=== PATIENT | male | born 1995 | race Two or more races ===

== ENCOUNTER 2024-02-07 07:50 | Observation (INO) ==
--- NOTE | 2024-02-07 08:15 | Emergency Department Note ---
Impression & Plan Foreign body ingestion ADMIT ED Provider Note HPI: History obtained from patient. The patient is a 28-year-old biological male who presents the emergency department from [facility] over concern for foreign body. Patient states last night at approximately midnight he ate an amount of glass from a broken tablet in an attempt to kill himself. Patient states that around the same time he also put pieces of a plastic fork in his urethra. Patient states that he developed worsening abdominal pain overnight and therefore came to the emergency department today to be assessed. On arrival here to the ED the patient is alert, patient is hemodynamically stable and otherwise appears to be in no acute distress on my initial assessment. ROS: - Per HPI Differential Diagnosis: Ingested foreign body/glass, perforated viscus, esophageal perforation, injury to the urethra, amongst other potential pathologies. *Outpatient medications and allergy history reviewed. PE: General: Alert HEENT: Normocephalic, trachea midline Eyes: Extraocular eye movement is intact, no scleral erythema Pulmonary: Clear to auscultation bilaterally, no wheezing Cardio: Regular rate and rhythm GI: Abdomen is soft to palpation, there is mild tenderness diffusely to palpation without any guarding or rigidity : No suprapubic tenderness, external exam does not show any evidence of any penile abnormalities or blood at the urethral meatus, no visualized foreign body MSK: No evidence of trauma or malformation of the extremities, no edema Skin: No evidence of rash Neuro: Alert, no focal deficits Psychiatric: Cooperative INDEPENDENT INTERPRETATIONS: school bus monitor: (As interpreted by myself): - An order was placed for continuous cardiac monitoring - Patient was noted to be in sinus rhythm with a rate of 70 Interventions provided in ED: -IV morphine, IV Zofran Medical Decision Making: IV was established and lab work obtained, patient was placed on laboratory monitor. Lab work shows a mild leukocytosis of 14.11, hemoglobin is stable at 11.2, platelet count is normal at 314, CMP does not show any evidence of any critical findings, urinalysis shows 1+ leukocyte esterase without any significant hematuria. X-ray imaging of the abdomen was obtained that is concerning for possible ingested glass in the area of the hepatic flexure. I did discuss this finding with on-call gastroenterology, Dr. Rodriguez, who is in agreement for consultation. He recommended admission for observation in the event that the glass was past the stomach so the patient can be monitored while this passes through the GI system. CT imaging of the abdomen pelvis was subsequently ordered by the gastroenterology service. Patient remained otherwise stable. In regards to the foreign body of the urethra I did consult urology, case was discussed with the on-call urology midlevel provider. They did evaluate the patient. Will defer further management of urethral foreign body to the urology service following further workup for ingested glass by gastroenterology. Following the uploading of the CT images of the abdomen pelvis, I did receive [place] text communication from the gastroenterology midlevel provider, Regis Mares PA-C, stating that the urology service would be taking the patient for EGD for further evaluation after they reviewed CT imaging. Formal read by the radiology service of CT imaging of the abdomen pelvis is currently pending. I did then discussed the case with the on-call hospitalist, Dr. Cantu, and the patient was placed for admission in stable condition. Patient was transported to the endoscopy suite in stable condition for further management. Consultants/Discussions held with other healthcare providers: -Gastroenterology, Dr. Rodriguez -Urology, Dr. Helms -Hospitalist, Dr. Cantu Disposition discussion held by myself with: -Patient and [facility] staff at the bedside Diagnosis: 1. Reported ingestion of glass, acute 2. Placement of urethral foreign body/plastic, acute 3. Suicide attempt, acute 4. Abdominal pain, acute Disposition: Admission José Antonio Beck DO Emergency Medicine Past Med/Surg History Problem List Foreign body ingestion (Acute) Foreign body ingestion Foreign body in penis (Acute) Malingering Acute urinary retention Medical History Asthma Foreign body in urethra Social History Smoking Status: Never smoker Tobacco Type: E-cigarettes / Vaping Preferred Language: [place] Feels Safe at Home: Yes Allergies Allergies Allergy/AdvReac Type Severity Reaction Status Date / Time trazodone Allergy Unknown Swelling Verified 02/07/24 14:27 of Lip/Tongue/Throat Home Meds Home Medications Medication Instructions Recorded Confirmed albuterol sulfate 90 mcg/actuation 2 puff inhalation QID PRN 11/21/23 02/07/24 aerosol inhaler Shortness Of Breath Or Wheezing spironolactone 100 mg tablet 100 mg PO UD 11/21/23 02/07/24 jstxftr-cwfwvnrghtcfo-cckvoril 250 2 tab PO BID PRN Pain 02/07/24 02/07/24 mg-250 mg-65 mg tablet ciclesonide 80 mcg/actuation 1 puff inhalation BID 02/07/24 02/07/24 aerosol inhaler (Alvesco) coal tar 2 % shampoo (Tarsum 1 applic topical 02/07/24 02/07/24 Professional) estradiol valerate 20 mg/mL 20 mg IM UD 02/07/24 02/07/24 intramuscular oil mirtazapine 15 mg tablet 22.5 mg PO HS 02/07/24 02/07/24 omeprazole 40 mg capsule,delayed 40 mg PO DAILY 02/07/24 02/07/24 release perphenazine 16 mg tablet 16 mg PO HS 02/07/24 02/07/24 sertraline 25 mg tablet 75 mg PO DAILY 02/07/24 02/07/24 sucralfate 1 gram tablet 1 g PO BID 02/07/24 02/07/24 topiramate 25 mg tablet 75 mg PO HS 02/07/24 02/07/24 Results & Data (ED) Vital Signs Vital Signs - 24 hr 02/07/24 07:56 02/07/24 08:23 02/07/24 08:29 Temperature 36.7 C Temperature Source Temporal Artery Scan Pulse Rate 73 70 69 Pulse Rate [Apical] Pulse Rhythm Regular Pulse Rhythm [Apical] Respiratory Rate 18 14 Respiratory Effort / Characteristics Non-Labored Spontaneous Respiratory Depth Normal Respiratory Pattern Blood Pressure 120/75 Blood Pressure [Right Arm] Blood Pressure Mean 90 Blood Pressure Mean [Right Arm] Blood Pressure Position Sitting Blood Pressure Position [Right Arm] Pulse Oximetry 100 100 Oxygen Delivery Method Room Air Room Air Sepsis Recent Fever Within 48 Hours No Sepsis New/Unexplained Change in Mental Status No Sepsis Action Taken by Nursing No Action Required 02/07/24 08:30 02/07/24 09:00 02/07/24 09:30 Temperature Temperature Source Pulse Rate 77 64 64 Pulse Rate [Apical] Pulse Rhythm Pulse Rhythm [Apical] Respiratory Rate 12 19 17 Respiratory Effort / Characteristics Respiratory Depth Respiratory Pattern Blood Pressure 122/71 123/72 114/73 Blood Pressure [Right Arm] Blood Pressure Mean 77 87 90 Blood Pressure Mean [Right Arm] Blood Pressure Position Blood Pressure Position [Right Arm] Pulse Oximetry 100 8 L 96 Oxygen Delivery Method Sepsis Recent Fever Within 48 Hours Sepsis New/Unexplained Change in Mental Status Sepsis Action Taken by Nursing 02/07/24 10:00 02/07/24 11:00 02/07/24 11:30 Temperature Temperature Source Pulse Rate 76 88 66 Pulse Rate [Apical] Pulse Rhythm Pulse Rhythm [Apical] Respiratory Rate 16 19 20 Respiratory Effort / Characteristics Respiratory Depth Respiratory Pattern Blood Pressure 124/74 93/63 L 107/53 L Blood Pressure [Right Arm] Blood Pressure Mean 103 75 76 Blood Pressure Mean [Right Arm] Blood Pressure Position Blood Pressure Position [Right Arm] Pulse Oximetry 98 100 100 Oxygen Delivery Method Sepsis Recent Fever Within 48 Hours Sepsis New/Unexplained Change in Mental Status Sepsis Action Taken by Nursing 02/07/24 12:30 02/07/24 14:31 Temperature 37 C Temperature Source Oral Pulse Rate 64 Pulse Rate [Apical] 64 Pulse Rhythm Pulse Rhythm [Apical] Regular Respiratory Rate 18 20 Respiratory Effort / Characteristics Non-Labored Spontaneous Normal for Patient Respiratory Depth Normal Respiratory Pattern Regular Blood Pressure 112/64 Blood Pressure [Right Arm] 110/74 Blood Pressure Mean 74 Blood Pressure Mean [Right Arm] 86 Blood Pressure Position Blood Pressure Position [Right Arm] Semi-fowlers Pulse Oximetry 99 99 Oxygen Delivery Method Room Air Sepsis Recent Fever Within 48 Hours Sepsis New/Unexplained Change in Mental Status Sepsis Action Taken by Nursing Laboratory Data 02/07/24 08:21 02/07/24 08:21 Lab Results 02/07/24 02/07/24 Range/Units 08:21 08:35 WBC 14.11 H (4.8-10.8) K/ul RBC 3.95 L (4.70-6.10) M/uL Hgb 11.2 L (14.0-18.0) g/dl Hct 33.5 L (42.0-52.0) % MCV 84.8 (80.0-100.0) fL MCH 28.4 (25.0-34.0) pg MCHC 33.4 (32.0-36.0) g/dL RDW Std Deviation 40.3 (36.4-46.3) fL RDW Coeff of Pankaj 13.0 (11.5-14.5) % Plt Count 314 (130-400) K/uL MPV 9.6 (9.4-12.4) fL Immature Gran % (Auto) 0.3 % Neut % (Auto) 79.2 % Lymph % (Auto) 11.1 % [place] % (Auto) 8.6 % Eos % (Auto) 0.4 % Baso % (Auto) 0.4 % Neut # (Auto) 11.18 H (1.40-6.50) K/uL Lymph # (Auto) 1.56 (1.20-3.40) K/uL [place] # (Auto) 1.22 H (0.11-0.59) K/uL Eos # (Auto) 0.06 (0.00-0.50) K/uL Baso # (Auto) 0.05 (0.00-0.20) K/uL Immature Gran # (Auto) 0.04 (0.01-0.20) K/uL Sodium 137 (136-145) mmol/L Potassium 3.5 (3.5-5.1) mmol/L Chloride 107 (98-107) mmol/L Carbon Dioxide 24 (21-32) mmol/L Anion Gap 6 (3-11) BUN 11 (6-23) mg/dl Creatinine 0.83 (0.6-1.4) mg/dl Est Cr Clr Drug Dosing 125.0 ml/min Est GFR ( Amer) 139.8 ml/min Est GFR (Non-Af Amer) 120.6 ml/min BUN/Creatinine Ratio 13.3 (10-20) Glucose 96 (70-99(Fasting)) mg/dl Calcium 9.6 (8.6-10.3) mg/dl Total Bilirubin 0.3 (0.2-1.0) mg/dl AST 21 (13-39) U/L ALT 12 (7-52) U/L Alkaline Phosphatase 60 (34-104) U/L Total Protein 7.7 (6.0-8.3) gm/dl Albumin 4.8 (3.4-5.0) gm/dl Globulin 2.9 (2.5-4.0) gm/dl Albumin/Globulin Ratio 1.7 (0.9-2) Lipase 26 (11-82) U/L Urine Color Yellow Urine Appearance Clear (Clear) Urine pH 7.0 (4.5-7.5) Ur Specific [place] 1.010 (1.000-1.030) Urine Protein Negative (Negative) Urine Glucose (UA) Negative (Negative) Urine Ketones Negative (Negative) Urine Blood Negative (Negative) Urine Nitrite Negative (Negative) Urine Bilirubin Negative (Negative) Urine Urobilinogen Negative (Negative) Ur Leukocyte Esterase 1+ H (Negative) Urine WBC (Auto) 0-5 (0-5) /hpf Urine RBC (Auto) 0-2 (0-2) /hpf U Hyaline Cast (Auto) 0-2 (0-2) /lpf U Epithel Cells (Auto) 0-2 (0-2) /hpf Urine Bacteria (Auto) None Seen (None Seen) Administered Medications Pantoprazole Sodium 40 mg/ (Syringe) 10 mls @ 5 mls/min IV BID AZUL Stop: 03/08/24 10:14 Last Admin: 02/07/24 10:34 Dose: 5 mls/min Documented By: HELGA Discontinued Medications Ioversol (Optiray 320 100ml) 92 ml IV ONCE ONE Stop: 02/07/24 12:44 Last Admin: 02/07/24 12:44 Dose: 92 ml Documented By: LORETTA Morphine Sulfate (Morphine Sulfate 4 Mg/Ml 1 Ml Carp\Vial) 4 mg IV NOW STA Stop: 02/07/24 09:09 Last Admin: 02/07/24 09:48 Dose: 4 mg Documented By: HELGA Morphine Sulfate (Morphine Sulfate 2 Mg/Ml Carp) 2 mg IV NOW STA Stop: 02/07/24 11:18 Last Admin: 02/07/24 11:31 Dose: 2 mg Documented By: HELGA Ondansetron HCl (Ondansetron Inj 2 Mg/Ml 2 Ml Vial) 4 mg IV NOW STA Stop: 02/07/24 09:09 Last Admin: 02/07/24 09:48 Dose: 4 mg Documented By: HELGA Imaging Data Radiologist's Impression: KUB X-Ray 02/07/24 08:09 XR KUB/Abdomen 1 view CLINICAL HISTORY: swallowed glass, also rectal FB reported TECHNIQUE: 1 view of the abdomen was obtained. Comparison: Comparison is made to abdomen radiograph 11/21/2023 FINDINGS: There are angular densities in the hepatic flexure. The osseous structures are grossly unremarkable. The bowel gas pattern is nonobstructive. A moderate amount of stool is noted within the large bowel. IMPRESSION: Angular densities in the hepatic flexure may represent swallowed glass. ACT 112: Negative or not required by law. Electronically signed by: Jose Hernandes M.D. 02/07/2024 9:09 AM Discharge Plan Visit Data Chief Complaint: Foreign Body Stated Complaint: SWALLOWED GLASS,INSERTED OBJECTS INTO RECTUM ED Provider: José Antonio Beck Discharge Problem: Foreign body ingestion Discharge Instructions Interventions: ED Discharge Assessment Last Done: 02/07/24 14:18 Forms Stand Alone Forms: [facility] TableApp Prescriptions Prescriptions: No Action spironolactone 100 mg Tablet 100 mg PO UD Rx Instructions: Take 100mg by mouth twice daily while in U albuterol sulfate 90 mcg/actuation Hfa Aerosol Inhaler 2 puff INHALATION QID PRN (Reason: Shortness Of Breath Or Wheezing) sucralfate 1 gram Tablet 1 g PO BID topiramate 25 mg Tablet 75 mg PO HS omeprazole 40 mg Capsule,Delayed Release(Dr/Ec) 40 mg PO DAILY Tarsum Professional 2 % Shampoo 1 applic TOPICAL UD Rx Instructions: 1 application once daily 3 times a week while in the RHU estradiol valerate 20 mg/mL Oil 20 mg IM UD Rx Instructions: Inject 20mg intra-muscularly on Day 1 and day 15 of every month in the evenings. sertraline 25 mg Tablet 75 mg PO DAILY mirtazapine 15 mg Tablet 22.5 mg PO HS Pain Relief Plus 250-250-65 mg Tablet 2 tab PO BID PRN (Reason: Pain) perphenazine 16 mg Tablet 16 mg PO HS Alvesco 80 mcg/actuation Hfa Aerosol Inhaler 1 puff INHALATION BID Referrals Referrals: Maria Luisa CHAVES [Primary Care Provider] - Discharge Problem: Foreign body ingestion Qualifiers: Encounter type: initial encounter Qualified Code(s): T18.9XXA - Foreign body of alimentary tract, part unspecified, initial encounter
[2024-02-07 09:06] LABS: Basophils # (auto) 0.05 K/uL (0.00-0.20); Basophils % (auto) 0.4 %; Eosinophils # (auto) 0.06 K/uL (0.00-0.50); Eosinophils % (auto) 0.4 %; Hematocrit (blood only) 33.5 % (42.0-52.0); Hemoglobin 11.2 g/dl (14.0-18.0); Immature Granulocytes # (auto) 0.04 K/uL (0.01-0.20); Immature Granulocytes % (auto) 0.3 %; Lymphocytes # (auto) 1.56 K/uL (1.20-3.40); Lymphocytes % (auto) 11.1 %; Mean Corpuscular Hemoglobin 28.4 pg (25.0-34.0); Mean Corpuscular Hgb Conc 33.4 g/dL (32.0-36.0); Mean Corpuscular Volume 84.8 fL (80.0-100.0); Mean Platelet Volume 9.6 fL (9.4-12.4); Monocytes # (auto) 1.22 K/uL (0.11-0.59); Monocytes % (auto) 8.6 %; Neutrophils # (auto) 11.18 K/uL (1.40-6.50); Neutrophils % (auto) 79.2 %; Platelet Count 314 K/uL (130-400); RDW Standard Deviation 40.3 fL (36.4-46.3); Red Blood Count 3.95 M/uL (4.70-6.10); White Blood Count 14.11 K/ul (4.8-10.8)
--- NOTE | 2024-02-07 09:12 | XRay Report ---
XR KUB/Abdomen 1 view CLINICAL HISTORY: swallowed glass, also rectal FB reported TECHNIQUE: 1 view of the abdomen was obtained. Comparison: Comparison is made to abdomen radiograph 11/21/2023 FINDINGS: There are angular densities in the hepatic flexure. The osseous structures are grossly unremarkable. The bowel gas pattern is nonobstructive. A moderate amount of stool is noted within the large bowel. IMPRESSION: Angular densities in the hepatic flexure may represent swallowed glass. ACT 112: Negative or not required by law. Electronically signed by: Jose Hernandes M.D. 02/07/2024 9:09 AM
[2024-02-07 09:16] LABS: Appearance Urine Clear (Clear); Bacteria Urine Automated None Seen (None Seen); Bilirubin Urine Negative (Negative); Blood Urine Negative (Negative); Cast Urine Automated 0-2 /lpf (0-2); Color Urine Yellow; Epithelial Cell Urine Auto 0-2 /hpf (0-2); Glucose Urine UA Negative (Negative); Ketones Urine Negative (Negative); Leukocyte Esterase Urine 1+ (Negative); Nitrite Urine Negative (Negative); Protein Urine Negative (Negative); RBC Urine Automated 0-2 /hpf (0-2); Urobilinogen Urine Negative (Negative); WBC Urine Automated 0-5 /hpf (0-5)
[2024-02-07 09:24] LABS: Albumin Globulin Ratio 1.7 (0.9-2); Albumin Level 4.8 gm/dl (3.4-5.0); BUN Creatinine Ratio 13.3 (10-20); Bilirubin,Total 0.3 mg/dl (0.2-1.0); Calcium 9.6 mg/dl (8.6-10.3); Est GFR (African American) 139.8 ml/min; Est GFR (Non-African American) 120.6 ml/min; Globulin 2.9 gm/dl (2.5-4.0); Potassium 3.5 mmol/L (3.5-5.1); Total Protein 7.7 gm/dl (6.0-8.3)
--- NOTE | 2024-02-07 09:46 | Urology Consultation ---
<Statement entered by Zaire Helms MD - 02/07/24 14:41> I have discussed this case with ROSETTE Delacruz and agree with the above documentation. Since patient is going to the OR for upper endoscopy, we will also plan for cystoscopy at that time to evaluate and remove any foreign bodies in the urethra. We discussed risks and benefits of the surgery including blee ding, infection, injury to urinary tract, need for additional procedures, inability to remove foreign objects. They expressed understanding and would like to proceed with surgery -Zaire Helms MD. Date of Consultation February 07, 2024 Assessment & Plan (1) Foreign body in urethra: Plan 28yo biological male who presented [facility] ED today from [facility] for reports of ingesting glass and placing a foreign body into the urethra. Patient reports placing 3 pieces of plastic cutlery into the urethra. Patient has been able to void. No obvious foreign body was noted on exam. Pt afebrile with stable vitals. Labs show leukocytosis of 14.11, hemoglobin 11.2, creatinine 0.83. Urinalysis 1+ LE, negative blood, negative nitrite, negative bacteria. KUB noted angular densities in the hepatic flexure may represent swallowed glass. Plan: For now, would recommend continued monitoring of ability to void. Bladder scan PRN. If patient is unable to void, would recommend placement of [place] catheter for bladder decompression. Will await GI consultation/plan. Urology will follow along. History of Present Illness History of Present Illness 28-year-old biological male who presented to the ED today from [facility] for evaluation of foreign body. The patient reported that he ingested glass from a broken tablet and also put pieces of a plastic fork in the urethra. Patient states that he developed worsening abdominal pain overnight and therefore came to the emergency department today to be assessed. The patient is well known to the urology service due to history of repeatedly placing foreign bodies in the urethra. Patient is s/p cystoscopy and foreign body removal in the urology clinic on 11/23/23. Pt seen at bedside in the ED. Awake, resting in bed on arrival. No acute distress. Guards x3 at bedside. Pt reports inserting 3 pieces of a plastic eating utensil into the urethra. Pt reports penile pain at present and noticeable blood prior to arrival in the ED. Patient has been able to void. Denies hematuria or dysuria at present. Denies feelings of incomplete emptying. Patient does report abdominal pain "from eating glass." Allergies Allergy/AdvReac Type Severity Reaction Status Date / Time trazodone Allergy Unknown Swelling Verified 02/07/24 14:27 of Lip/Tongue/Throat Home Medications Medication Instructions Recorded Confirmed Type albuterol sulfate 90 mcg/actuation 2 puff inhalation QID PRN 11/21/23 02/07/24 History aerosol inhaler Shortness Of Breath Or Wheezing spironolactone 100 mg tablet 100 mg PO UD 11/21/23 02/07/24 History szzbdsj-cyzzqcpckftvx-gnghdryp 250 2 tab PO BID PRN Pain 02/07/24 02/07/24 History mg-250 mg-65 mg tablet ciclesonide 80 mcg/actuation 1 puff inhalation BID 02/07/24 02/07/24 History aerosol inhaler (Alvesco) coal tar 2 % shampoo (Tarsum 1 applic topical UD 02/07/24 02/07/24 History Professional) estradiol valerate 20 mg/mL 20 mg IM UD 02/07/24 02/07/24 History intramuscular oil mirtazapine 15 mg tablet 22.5 mg PO HS 02/07/24 02/07/24 History omeprazole 40 mg capsule,delayed 40 mg PO DAILY 02/07/24 02/07/24 History release perphenazine 16 mg tablet 16 mg PO HS 02/07/24 02/07/24 History sertraline 25 mg tablet 75 mg PO DAILY 02/07/24 02/07/24 History sucralfate 1 gram tablet 1 g PO BID 02/07/24 02/07/24 History topiramate 25 mg tablet 75 mg PO HS 02/07/24 02/07/24 History Patient History Medical History Asthma Foreign body in urethra Social History Smoking Status: Never smoker Tobacco Type: E-cigarettes / Vaping Preferred Language: Burmese Feels Safe at Home: Yes Physical Exam Constitutional: no acute distress and + uncomfortable Pt is restrained Respiratory: no respiratory distress and no labored breathing Musculoskeletal: Head/Neck/Chest: normocephalic Skin: No visible rashes or lesions to exposed skin areas Neurologic: awake Psychiatric: Orientation: alert and oriented x 3 Genitourinary: Patient examined at bedside. Nurse and guards at bedside. Normal phallus with no sign of blood at the meatus. There was increased tenderness with palpation to penile shaft and penoscrotal junction. No obvious foreign body was able to be palpated. Results & Data Vital Signs (Past 12 Hours) Vital Signs Temp Pulse Resp BP Pulse Ox O2 Del Method 02/07/24 08:30 77 12 122/71 100 02/07/24 08:29 69 02/07/24 08:23 70 14 100 Room Air 02/07/24 07:56 36.7 C 73 18 120/75 100 Room Air PG Care Time/CCT Total # of Minutes Spent Total Time Spent with Patient: Total time spent is greater than 50% in coordination of care (as documented) at patient's floor/unit and/or counseling patient: Coding Level of Care Code 73662 IN/OBS CONSULT LVL 4,60M Diagnoses Foreign body in urethra T19.0XXA Encounter type: initial encounter (1) Foreign body in urethra Encounter type: initial encounter Qualified Code(s): T19.0XXA - Foreign body in urethra, initial encounter
[2024-02-07] MEDS: MoRPHine SULFATE 4 MG/ML 1 ML CARP\\VIAL IV STA (09:48)
[2024-02-07] MEDS: ONDANSETRON INJ 2 MG/ML 2 ML VIAL IV STA (09:48)
--- NOTE | 2024-02-07 10:09 | Gastrointestinal Consultation ---
Date of Consultation February 07, 2024 Assessment & Plan (1) Foreign body ingestion: Patient presented to ED from [facility] after having ingested glass in a suicide attempt. KUB shows glass in the hepatic flexure. Case was discussed with Dr. Rodriguez who advised on plan. - no role for endoscopy at this time as glass is at the hepatic flexure. - check CT abdomen/pelvis to further evaluate. - start protonix 40mg IV bid. - further recommendations to follow. Supervising Physician Co-Signing Physician Notes I examined the patient and reviewed patient's chart , laboratory data and imaging studies. I agree with with assessment and plan of care as suggested by advanced practice provider. CT scan with was reviewed. Several foreign objects possibly pieces of glass are found in the stomach. There is 1 piece likely embedded in the gastric wall. EGD with an over tube for possible removal of the foreign body. Surgical consultation. History of Present Illness Reason for Consultation: Ingested glass Requesting Physician: José Antonio Beck DO History of Present Illness Patient is a 28 year old male who presented the emergency department from retirement after ingesting glass. Patient states that last evening he swallowed glass in an attempt to kill himself. Patient states that he developed worsening abdominal pain overnight and therefore came to the emergency department to be assessed. He had a KUB suggesting that glass is now at the hepatic flexure. P atient tells me he has had ongoing abdominal pain since ingestion of the glass. rest of GI ros unremarkable. Allergies Allergy/AdvReac Type Severity Reaction Status Date / Time trazodone Allergy Unknown Swelling Verified 02/07/24 14:27 of Lip/Tongue/Throat Home Medications Medication Instructions Recorded Confirmed Type albuterol sulfate 90 mcg/actuation 2 puff inhalation QID PRN 11/21/23 02/07/24 History aerosol inhaler Shortness Of Breath Or Wheezing spironolactone 100 mg tablet 100 mg PO UD 11/21/23 02/07/24 History myilhzf-wgmioctohfkws-mmccnbqv 250 2 tab PO BID PRN Pain 02/07/24 02/07/24 History mg-250 mg-65 mg tablet ciclesonide 80 mcg/actuation 1 puff inhalation BID 02/07/24 02/07/24 History aerosol inhaler (Alvesco) coal tar 2 % shampoo (Tarsum 1 applic topical UD 02/07/24 02/07/24 History Professional) estradiol valerate 20 mg/mL 20 mg IM UD 02/07/24 02/07/24 History intramuscular oil mirtazapine 15 mg tablet 22.5 mg PO HS 02/07/24 02/07/24 History omeprazole 40 mg capsule,delayed 40 mg PO DAILY 02/07/24 02/07/24 History release perphenazine 16 mg tablet 16 mg PO HS 02/07/24 02/07/24 History sertraline 25 mg tablet 75 mg PO DAILY 02/07/24 02/07/24 History sucralfate 1 gram tablet 1 g PO BID 02/07/24 02/07/24 History topiramate 25 mg tablet 75 mg PO HS 02/07/24 02/07/24 History Patient History Medical History Asthma Foreign body in urethra Social History Smoking Status: Never smoker Tobacco Type: E-cigarettes / Vaping Preferred Language: Qatari Feels Safe at Home: Yes Review of Systems Review of Systems: All systems reviewed & are unremarkable except as noted in HPI & below Physical Exam Constitutional: WD/WN, vitals as above Respiratory: normal respiratory effort, lungs clear to auscultation Cardiovascular: Rate/Rhythm: regular rate and regular rhythm Gastrointestinal (Abdomen): diffuse abdominal discomfort to palpation. no guarding. normal bowel sounds, soft. Psychiatric: Orientation: alert and oriented x 3 Results & Data Vital Signs (Past 12 Hours) Vital Signs Temp Pulse Resp BP Pulse Ox O2 Del Method 02/07/24 10:00 76 16 124/74 98 02/07/24 09:30 64 17 114/73 96 02/07/24 09:00 64 19 123/72 8 L 02/07/24 08:30 77 12 122/71 100 02/07/24 08:29 69 02/07/24 08:23 70 14 100 Room Air 02/07/24 07:56 98.1 F 73 18 120/75 100 Room Air Coding Level of Care Code 08788 OFFICE CONSULT LVL M Diagnoses Foreign body ingestion T18.9XXA
[2024-02-07] MEDS: PANTOprazole 40 MG in SYRINGE 0 ML IV SCH (10:34)
[2024-02-07] MEDS: MoRPHine SULFATE 2 MG/ML CARP IV STA ×2 (11:31→17:05)
[2024-02-07] MEDS: OPTIRAY 320 100ml IV ONE (12:44)
--- NOTE | 2024-02-07 13:48 | History & Physical Report ---
Date of Service February 07, 2024 Assessment & Plan (1) Foreign body ingestion: (2) Foreign body in penis: History of Present Illness Primary Care Provider: ANASTACIO Clinton (Brittany) Thom is a 28 year old transgender female who presents Allergies Allergy/AdvReac Type Severity Reaction Status Date / Time trazodone Allergy Unknown Unknown Unverified 02/07/24 10:08 Home Medications Medication Instructions Recorded Confirmed Type albuterol sulfate 90 mcg/actuation 2 puff inhalation QID PRN 11/21/23 02/07/24 History aerosol inhaler Shortness Of Breath Or Wheezing spironolactone 100 mg tablet 100 mg PO UD 11/21/23 02/07/24 History qkwlabh-dteneemxjkirh-qfnlfucf 250 2 tab PO BID PRN Pain 02/07/24 02/07/24 History mg-250 mg-65 mg tablet ciclesonide 80 mcg/actuation 1 puff inhalation BID 02/07/24 02/07/24 History aerosol inhaler (Alvesco) coal tar 2 % shampoo (Tarsum 1 applic topical UD 02/07/24 02/07/24 History Professional) estradiol valerate 20 mg/mL 20 mg IM UD 02/07/24 02/07/24 History intramuscular oil mirtazapine 15 mg tablet 22.5 mg PO HS 02/07/24 02/07/24 History omeprazole 40 mg capsule,delayed 40 mg PO DAILY 02/07/24 02/07/24 History release perphenazine 16 mg tablet 16 mg PO HS 02/07/24 02/07/24 History sertraline 25 mg tablet 75 mg PO DAILY 02/07/24 02/07/24 History sucralfate 1 gram tablet 1 g PO BID 02/07/24 02/07/24 History topiramate 25 mg tablet 75 mg PO HS 02/07/24 02/07/24 History Past Med/Surg History Problem List (Updated 02/07/24 @ 10:13 by Regis Mares PA-C) Foreign body ingestion Foreign body in penis (Acute) Malingering Acute urinary retention Medical History Foreign body in urethra Social History Smoking Status: Never smoker Tobacco Type: E-cigarettes / Vaping Preferred Language: Kazakh Feels Safe at Home: Yes Results & Data Results & Data Vital Signs (Past 12 Hours) Vital Signs Temp Pulse Resp BP Pulse Ox O2 Del Method 02/07/24 12:30 64 18 112/64 99 02/07/24 11:30 66 20 107/53 L 100 02/07/24 11:00 88 19 93/63 L 100 02/07/24 10:00 76 16 124/74 98 02/07/24 09:30 64 17 114/73 96 02/07/24 09:00 64 19 123/72 8 L 02/07/24 08:30 77 12 122/71 100 02/07/24 08:29 69 02/07/24 08:23 70 14 100 Room Air 02/07/24 07:56 36.7 C 73 18 120/75 100 Room Air Laboratory Results Abnormal lab results 02/07/24 02/07/24 Range/Units 08:21 08:35 WBC 14.11 H (4.8-10.8) K/ul RBC 3.95 L (4.70-6.10) M/uL Hgb 11.2 L (14.0-18.0) g/dl Hct 33.5 L (42.0-52.0) % Neut # (Auto) 11.18 H (1.40-6.50) K/uL [place] # (Auto) 1.22 H (0.11-0.59) K/uL Ur Leukocyte Esterase 1+ H (Negative) Diagnostic Findings XR KUB/Abdomen 1 view CLINICAL HISTORY: swallowed glass, also rectal FB reported TECHNIQUE: 1 view of the abdomen was obtained. Comparison: Comparison is made to abdomen radiograph 11/21/2023 FINDINGS: There are angular densities in the hepatic flexure. The osseous structures are grossly unremarkable. The bowel gas pattern is nonobstructive. A moderate amount of stool is noted within the large bowel. IMPRESSION: Angular densities in the hepatic flexure may represent swallowed glass. Medications Administered ER Medications Given: Morphine 4mg IV Ondansetron 4mg IV Morphine 2mg IV PG Care Time/CCT Total # of Minutes Spent Total Time Spent with Patient: Total time spent is greater than 50% in coordination of care (as documented) at patient's floor/unit and/or counseling patient: Coding Diagnoses Foreign body ingestion T18.9XXA Foreign body in penis T19.4XXA Encounter type: initial encounter (2) Foreign body in penis Encounter type: initial encounter Qualified Code(s): T19.4XXA - Foreign body in penis, initial encounter
--- NOTE | 2024-02-07 13:50 | History & Physical Report ---
Date of Service February 07, 2024 Assessment & Plan (1) Foreign body ingestion: Plan: - patient swallowed glass from Tablet - X-ray showed glass within the hepatic flexure - CT scan showed possibility of several pieces of glass within the stomach - Patient with ongoing severe pain - Currently n.p.o. - home oral medications currently held: estradiol, mirtazapine, perphenazine, sertraline, spironolactone, sucralfate, and topiramate - white blood cell count elevated at 14.1 on admission, likely due to foreign body - Hemoglobin low at 11.2 on admission - continue scheduled propranolol IV and Zofran ordered as needed - GI following, EGD scheduled for today (2) Foreign body in penis: Plan: - patient inserted 3 pieces of a plastic fork into urethra - Patient urinated once on 02/06 with passage of 1 piece of plastic prior to admission - Urology consulted Plan VTE ppx: SCDs Diet: NPO Chronic stable diagnoses: Asthma - continue home inhaler Headaches - topiramate currently held, n.p.o. Gender transitioning - estradiol and spironolactone currently held, n.p.o. Depression sertraline, mirtazapine, and perphenazine currently held, n.p.o. Code status: FULL CODE Admission and Anticipated Discharge Date Admission Date: 02/07/24 History of Present Illness Chief Complaint: Foreign body Primary Care Provider: ANASTACIO Glass Patient is a gender neutral 28-year-old, who would like to be called [facility] at this time. They have a past medical history of asthma, headaches, and depression. Patient was seen today for swallowing glass from their tablet and inserting pieces of a plastic fork in their urethra. They have had a history of inserting pieces of a plastic fork through their urethra multiple over the past few months. Patient stated that since ingesting the glass they have a headache, dizziness, lightheadedness, blurred vision, cough, sore throat, and abdominal pain. They state their pain is sharp and a 10/10 on the pain scale. Patient has not had a bowel movement since ingesting the glass. They deny hemoptysis, nausea, and vomiting. Patient has urinated with pain once this morning since inserting the plastic in their urethra. They stated that 1 piece of plastic came out while urinating, while 2 remain in the urethra. They deny hematuria. Patient has not has anything to eat yet today. Patient denies hematemesis, numbness, tingling. Patient denies tobacco use, alcohol use, and illicit drug use. Patient denies history of COPD, cancer, seizures, arrhythmias, diverticulitis, and bleeding di sorders. Patient is a full code at this time. Allergies Allergy/AdvReac Type Severity Reaction Status Date / Time trazodone Allergy Unknown Swelling Verified 02/07/24 14:27 of Lip/Tongue/Throat Home Medications Medication Instructions Recorded Confirmed Type albuterol sulfate 90 mcg/actuation 2 puff inhalation QID PRN 11/21/23 02/07/24 History aerosol inhaler Shortness Of Breath Or Wheezing spironolactone 100 mg tablet 100 mg PO UD 11/21/23 02/07/24 History iayauth-obzzfrzqmxcvs-yaynfedk 250 2 tab PO BID PRN Pain 02/07/24 02/07/24 History mg-250 mg-65 mg tablet ciclesonide 80 mcg/actuation 1 puff inhalation BID 02/07/24 02/07/24 History aerosol inhaler (Alvesco) coal tar 2 % shampoo (Tarsum 1 applic topical UD 02/07/24 02/07/24 History Professional) estradiol valerate 20 mg/mL 20 mg IM UD 02/07/24 02/07/24 History intramuscular oil mirtazapine 15 mg tablet 22.5 mg PO HS 02/07/24 02/07/24 History omeprazole 40 mg capsule,delayed 40 mg PO DAILY 02/07/24 02/07/24 History release perphenazine 16 mg tablet 16 mg PO HS 02/07/24 02/07/24 History sertraline 25 mg tablet 75 mg PO DAILY 02/07/24 02/07/24 History sucralfate 1 gram tablet 1 g PO BID 02/07/24 02/07/24 History topiramate 25 mg tablet 75 mg PO HS 02/07/24 02/07/24 History Past Med/Surg History Problem List Foreign body ingestion (Acute) Foreign body ingestion Foreign body in penis (Acute) Malingering Acute urinary retention Medical History Asthma Foreign body in urethra Social History Smoking Status: Never smoker Tobacco Type: E-cigarettes / Vaping Preferred Language: Eritrean Feels Safe at Home: Yes Review of Systems Review of Systems: See HPI Physical Exam Physical Exam: The patient is awake, alert and oriented 3, well developed and well nourished, normocephalic and atraumatic, lying in bed and in no acute distress. Non-toxic appearing. HEENT- EOMI, mucous membranes dry. Hearing grossly intact. Heart-normal S1 and S2. No murmurs, rubs or gallops. Lungs-clear bilaterally, no respiratory distress, no accessory muscle use. Abdomen-normal bowel sounds and soft. No bruising or ascites noted. Severe tenderness to light palpation. Extremities-no cyanosis or clubbing. No edema. Dermatologic-normal skin turgor, normal color, no abnormal lymph nodes, no rash. Rheumatologic-normal range of motion. Psychiatric-normal affect. Results & Data Results & Data Vital Signs (Past 12 Hours) Vital Signs Temp Pulse Resp BP Pulse Ox O2 Del Method 02/07/24 12:30 64 18 112/64 99 02/07/24 11:30 66 20 107/53 L 100 02/07/24 11:00 88 19 93/63 L 100 02/07/24 10:00 76 16 124/74 98 02/07/24 09:30 64 17 114/73 96 02/07/24 09:00 64 19 123/72 8 L 02/07/24 08:30 77 12 122/71 100 02/07/24 08:29 69 02/07/24 08:23 70 14 100 Room Air 02/07/24 07:56 36.7 C 73 18 120/75 100 Room Air Code Status & VTE Plan Code Status FULL CODE VTE Prophylaxis Plan VTE Prophylaxis will be ordered: Yes Supervising Physician Co-Signing Physician Notes I personally saw and examined the patient. I independently reviewed the labs, imaging, problem list, medication list, past medical history and family history. I verified all medina points and agree with Armida Mays PA-C with the following exceptions and/or additions: 28 year old transgender female presents to the ER with foreign body insertion in penis and eating glass from a tablet. Patient reports severity 10/10 pain when seen. O/E HS RRR, no murmurs, Chest CTAB, generalized abdominal tenderness with guarding and rebound tenderness A/P Foreign body insertion - urology consulted for urethral insertion, GI consulted for glass/plastic in stomach. XR showing further foreign objects in small/large bowel. NPO, IV fluids. PG Care Time/CCT Total # of Minutes Spent Total Time Spent with Patient: Total time spent is greater than 50% in coordination of care (as documented) at patient's floor/unit and/or counseling patient: Coding Level of Care Code None Diagnoses Foreign body ingestion T18.9XXA Foreign body in penis T19.4XXA Encounter type: initial encounter (2) Foreign body in penis Encounter type: initial encounter Qualified Code(s): T19.4XXA - Foreign body in penis, initial encounter
[2024-02-07] MEDS ORDERED: ONDANSETRON INJ 2 MG/ML 2 ML VIAL ONE (14:09)
[2024-02-07] MEDS ORDERED: LIDOCAINE 2% 2 ML VIAL/AMP(20MG/ML) INFIL ONE ×2 (14:09→14:11)
[2024-02-07] MEDS ORDERED: fentaNYL citrate PF 100 MCG/2 ML VIAL ONE (14:09)
[2024-02-07] MEDS ORDERED: MIDAZOLAM HCL 1 MG/ML 2ML VIAL ONE (14:09)
[2024-02-07] MEDS ORDERED: PROPOFOL IV EMULSION 10 MG/ML 20 ML VIAL IV ONE (14:09)
[2024-02-07] MEDS ORDERED: DEXAMETHASONE SOD INJ 4 MG/ML VIAL ONE (14:09)
[2024-02-07] MEDS ORDERED: ROCURONIUM BROMIDE 10 MG/ML 5 ML VIAL IV ONE ×5 (14:09→14:10)
[2024-02-07] MEDS ORDERED: ONDANSETRON INJ 2 MG/ML 2 ML VIAL IV PRN ×3 (14:13→18:34)
[2024-02-07] MEDS ORDERED: fentaNYL citrate PF 100 MCG/2 ML VIAL IV PRN (14:42)
[2024-02-07] MEDS ORDERED: ePHEDrine sulfate 50 MG/ML AMP IV PRN (14:42)
[2024-02-07] MEDS ORDERED: ATROPINE SULFATE 0.1 MG/ML 10ML SYR IV PRN (14:42)
--- NOTE | 2024-02-07 14:42 | Anesthesiology Consultation ---
Date of Service February 07, 2024 Assessment & Plan ASA ASA3 Proposed Anesthesia Anesthesia Type: General Risk / Benefits Reviewed With: PT / POA / Parent / Guardian, Accepts Plan and Informed Consent Obtained History Surgery Operation Date: 02/07/24 11:10 Proposed Procedures p Esophagogastroduodenoscopy - Aditya Rodriguez MD Height/Weight Height: 5 ft 7 in Weight: 68.8 kg Allergies Allergy/AdvReac Type Severity Reaction Status Date / Time trazodone Allergy Unknown Swelling Verified 02/07/24 14:27 of Lip/Tongue/Throat Medications Home Medications Medication Instructions Recorded Confirmed Last Taken albuterol sulfate 90 mcg/actuation 2 puff inhalation QID PRN 11/21/23 02/07/24 11/19/23 aerosol inhaler Shortness Of Breath Or Wheezing spironolactone 100 mg tablet 100 mg PO UD 11/21/23 02/07/24 11/21/23 07:00 abhfgvo-ehwzxlilujrta-emdonaam 250 2 tab PO BID PRN Pain 02/07/24 02/07/24 Unknown mg-250 mg-65 mg tablet ciclesonide 80 mcg/actuation 1 puff inhalation BID 02/07/24 02/07/24 Unknown aerosol inhaler (Alvesco) coal tar 2 % shampoo (Tarsum 1 applic topical UD 02/07/24 02/07/24 Unknown Professional) estradiol valerate 20 mg/mL 20 mg IM UD 02/07/24 02/07/24 Unknown intramuscular oil mirtazapine 15 mg tablet 22.5 mg PO HS 02/07/24 02/07/24 Unknown omeprazole 40 mg capsule,delayed 40 mg PO DAILY 02/07/24 02/07/24 Unknown release perphenazine 16 mg tablet 16 mg PO HS 02/07/24 02/07/24 Unknown sertraline 25 mg tablet 75 mg PO DAILY 02/07/24 02/07/24 Unknown sucralfate 1 gram tablet 1 g PO BID 02/07/24 02/07/24 Unknown topiramate 25 mg tablet 75 mg PO HS 02/07/24 02/07/24 Unknown Active Medications Generic Name Dose Route Start Last Admin Trade Name Freq PRN Reason Stop Dose Admin Pantoprazole Sodium 40 mg/ 10 mls @ 5 mls/min 02/07/24 10:15 02/07/24 10:34 Syringe IV 03/08/24 10:14 5 mls/min BID AZUL Administration NPO Date Last Intake of Fluids: 02/07/24 Time Last Intake of Fluids: 11:00 Last Intake of Fluids Comment: oral contrast Date Last Intake of Solids: 02/06/24 Time Last Intake of Solids: 23:59 Past Medical History Medical History Asthma Foreign body in urethra Exercise / Class Metabolic Activity II 4-5 Yardwork/Stairs/Walk up hill Past Anesthesia History No Hx of Anesthesia Complications and No Family Hx of Anesthesia Complications History of PONV No Hx of PONV and No Hx of Motion Sickness Social History Smoking Status: Never smoker Review of Systems denies fever/cough/ colds/ chest pain/ SOB/ SUSHMA denies SUSHMA Physical Exam Vital Signs Last Vital Signs Temp 37 C 02/07/24 14:31 Pulse 64 02/07/24 14:31 Resp 20 02/07/24 14:31 BP 110/74 02/07/24 14:31 Pulse Ox 99 02/07/24 14:31 O2 Del Method Room Air 02/07/24 14:31 ENMT Mouth: no TMJ abnormality and no dentition abnormality Thyromental Distance: > or= 3.5 Finger Breadths Mallampati Class: II Neck neck extension not limited Respiratory normal respiratory effort; no respiratory distress Auscultation: lungs clear to auscultation bilaterally Cardiovascular Rate/Rhythm: regular rate and regular rhythm Neurologic moves all extremities Psychiatric Orientation: alert and oriented x 3 Testing Laboratory Results 02/07/24 08:21 02/07/24 08:21 Urine Color Yellow 02/07/24 08:35 Urine Appearance Clear (Clear) 02/07/24 08:35 Urine pH 7.0 (4.5-7.5) 02/07/24 08:35 Ur Specific [place] 1.010 (1.000-1.030) 02/07/24 08:35 Urine Protein Negative (Negative) 02/07/24 08:35 Urine Glucose (UA) Negative (Negative) 02/07/24 08:35 Urine Ketones Negative (Negative) 02/07/24 08:35 Urine Nitrite Negative (Negative) 02/07/24 08:35 Ur Leukocyte Esterase 1+ (Negative) H 02/07/24 08:35 Urine WBC (Auto) 0-5 /hpf (0-5) 02/07/24 08:35 Urine RBC (Auto) 0-2 /hpf (0-2) 02/07/24 08:35 U Hyaline Cast (Auto) 0-2 /lpf (0-2) 02/07/24 08:35 U Epithel Cells (Auto) 0-2 /hpf (0-2) 02/07/24 08:35 Urine Bacteria (Auto) None Seen (None Seen) 02/07/24 08:35
[2024-02-07] MEDS: LACTATED RINGER'S 1,000 ML IV SCH (14:47)
[2024-02-07] MEDS: ceFAZolin 2000MG 2,000 MG/15 ML SYR IV ONE (15:04)
[2024-02-07] MEDS ORDERED: SUGAMMADEX SODIUM 200 MG/2 ML VIAL IV ONE (15:25)
--- NOTE | 2024-02-07 15:30 | Operative Report ---
PG Post Operative Report Pre & Post Diagnosis Operation Date: 02/07/24 11:10 Pre-Op Diagnosis: Urethral Foreign Body Post-Op Diagnosis: Urethral Foreign Body I identified the patient and participated in the time-out.: Yes Procedure Operation Date: 02/07/24 11:10 Actual Procedures Cystoscopy, Removal of Foreign Body(Not Applicable) - Zaire Helms MD Surgeon Zaire Helms MD Insurance Administrator None Estimated Blood Loss 0 Findings See Below 2 piece of plastic in the distal urethra, removed with cystoscopic graspers and hemostat. Specimens Urethral foreign body Drains 20 [place] Ventura catheter per urethra, 10 cc in balloon Anesthesia Type General Complications none Disposition Accompanied Patient To Recovery: Yes Disposition: Recovery Room Indications This is a 28-year-old incarcerated male who presented to the emergency department on 02/07/24 with reported insertion of foreign bodies into the urethra as well as ingestion of foreign bodies. He was brought to the OR for upper endoscopy and foreign body removal as well as cystoscopy and urethral foreign body removal. Description of Procedure The patient was identified in the holding area and informed consent was confirmed. He was taken to the operating room where anesthesia was initiated. He was placed in the supine position with all pressure points appropriately padded. He was prepped and draped in the usual sterile fashion using Betadine and a preoperative timeout was performed. A well-lubricated cystoscope was inserted per urethra and panendoscopy was performed. There were 2 pieces of apparent plastic in the distal urethra. No additional foreign bodies were seen proximal to this in the urethra or in the bladder. A pair of cystoscopic graspers was introduced and used to grasp and withdraw the pieces of plastic in the distal urethra. At the urethral meatus, these would become hot and were subsequently grabbed with hemostats to be removed. After the 2 pieces of plastic removed, they were collected and sent for analysis labeled as urethral foreign body. Final survey with the cystoscope did not identify any more foreign bodies in the urethral or bladder. The mucosa was somewhat irritated at the meatus with some superficial splitting. A 20 [place] Ventura catheter was placed with 10 cc in balloon. Catheter was attached to gravity drainage. Patient tolerated this portion of the procedure well. At this point the case was turned over to GI for endoscopy, which will be dictated separately. I attest to the content of the Intraoperative Record and any orders documented therein. Any exceptions are noted below.
--- NOTE | 2024-02-07 15:50 | CT Scan Report ---
CT SCAN OF THE ABDOMEN AND PELVIS WITH IV CONTRAST CLINICAL HISTORY: Foreign body ingestion. COMPARISON STUDY: Abdominal radiograph dated 02/07/2024. TECHNIQUE: Following the IV administration of 92 cc of Optiray 320, CT scan of the abdomen and pelvi s is performed from the lung bases to the proximal femora. Images are reviewed in the axial, sagittal , and coronal planes. IV contrast was administered without complication. Oral contrast was utilized. A dose lowering technique was utilized adhering to the principles of ALARA. CT DOSE: 693.02 mGy.cm FINDINGS: Lung bases: The heart is normal in size and without pericardial effusion. The lung bases are clear. Liver: The contrast-enhanced liver is normal in size, contour, and attenuation. There is no intrahepa tic biliary ductal dilatation. The hepatic veins and portal veins are patent. Gallbladder: Unremarkable. Spleen: Normal in size and attenuation. Pancreas: Unremarkable. Adrenal glands: Unremarkable. Kidneys: The contrast enhanced kidneys are normal in size and without hydronephrosis. The kidneys enh ance symmetrically. Abdominal vasculature: The abdominal aorta is normal in course and caliber. Stomach and bowel: Foreign bodies are suboptimally assessed due to the presence of enteric contrast. Approximately 3 cm radiodense foreign body is seen at/below the gastroesophageal junction on image #8 3. Dependent radiodense foreign bodies within the stomach measure up to 4.5 cm as seen on images #92 and #96. A small radiodense foreign body within a loop of jejunum is seen on image #134. There may be additional tiny radiodense foreign bodies within the duodenum on image #151 and within a loop of sma ll bowel in the left lower quadrant on image #214. Numerous radiodense foreign bodies are suggested i n the cecum and ascending colon, best seen on image #239. There is moderate colonic fecal retention. No bowel obstruction is seen. Enteric contrast reaches the right colon. The appendix is well-visuali zed and normal. Peritoneum: There is no intraperitoneal free air or abdominal ascites. There is a fat-containing umbi lical hernia. Lymphadenopathy: None. Pelvic viscera: The bladder, prostate, and seminal vesicles are normal as imaged. Skeletal structures: No lytic or blastic lesions are seen. IMPRESSION: 1. Numerous radiodense foreign bodies are seen in the stomach, small bowel, and colon as above. These are suboptimally assessed due to the presence of enteric contrast. 2. There is no intraperitoneal free air or evidence of bowel perforation. 3. No bowel obstruction is seen. 4. Additional findings as above. ACT 112: Negative or not required by law. Electronically signed by: Matt Delgado M.D. 02/07/2024 3:48 PM
--- NOTE | 2024-02-07 16:11 | GI REPORT ---
[facility] Patient: COURTNEY BORGES : 1995 Sex at : Male Age: 28 Years Procedure: Upper GI endoscopy Date: 02/07/2024 Attending Physician: Aditya Rodriguez MD Referring MD: José Antonio Beck Do Indications: Medications: - General Anesthesia Complications: - No immediate complications. Estimated Blood Loss: - Estimated blood loss: None. Procedure: - The egd scope was introduced through the mouth and advanced to the third part of the duodenum. - The upper GI endoscopy was somewhat difficult due to presence of foreign body. Findings: - Shallow mucosal abrasions secondary to recent ingestion of plastic shards were seen throughout the esophagus. Otherwise the esophagus was normal. - Multiple glass/plastic shards were found at the gastroesophageal junction and in the gastric antrum. Multiple computer (iPad) screen plastic shards were successfully removed with a rat-tooth forceps. A protective rabago placed at the distal tip of the endoscope was used. Otherwise the stomach was normal. - The examined duodenum was normal. Impression: - Normal esophagus. - A glass shard was found in the stomach. - Multiple computer (iPad) screen plastic shards were removed with the use of rat-tooth forceps. A protective rabago was used - Normal examined duodenum. - No specimens collected. Recommendation: - Observe patient's clinical course. Procedure Code(s): - 46633, Esophagogastroduodenoscopy, flexible, transoral; diagnostic, including collection of specimen(s) by brushing or washing, when performed (separate procedure) Diagnosis Code(s): - T18.2XXA, Foreign body in stomach, initial encounter CPT(R) - 2022 copyright [employer]. All Rights Reserved. The CPT codes, CCI edits and ICD codes generated are intended as suggestions and were generated based on input data. These codes are preliminary and upon ceramic artist review may be revised to meet current compliance and payer requirements. The provider is responsible for the final determination of appropriate codes, and modifiers. Aditya Rodriguez M.D. , This document has been electronically signed. Note Initiated:02/07/2024 Note Completed:02/07/2024 4:11 PM [id number]
--- NOTE | 2024-02-07 16:15 | Anesthesiology Progress Note ---
Date of Service February 07, 2024 Anesthesia Post Procedure Vital Signs Vital Signs: Temp Pulse Pulse Resp BP BP BP 02/07/24 16:10 76 14 112/65 02/07/24 16:02 36.0 C L 55 L 15 111/72 02/07/24 14:31 37 C 64 20 110/74 02/07/24 12:30 64 18 112/64 02/07/24 11:30 66 20 107/53 L 02/07/24 11:00 88 19 93/63 L 02/07/24 10:00 76 16 124/74 02/07/24 09:30 64 17 114/73 02/07/24 09:00 64 19 123/72 02/07/24 08:30 77 12 122/71 02/07/24 08:29 69 02/07/24 08:23 70 14 02/07/24 07:56 36.7 C 73 18 120/75 Pulse Ox O2 Del Method O2 Flow Rate 02/07/24 16:10 100 Room Air 02/07/24 16:02 100 Oxymask 6 02/07/24 14:31 99 Room Air 02/07/24 12:30 99 02/07/24 11:30 100 02/07/24 11:00 100 02/07/24 10:00 98 02/07/24 09:30 96 02/07/24 09:00 8 L 02/07/24 08:30 100 02/07/24 08:29 02/07/24 08:23 100 Room Air 02/07/24 07:56 100 Room Air Pain Intensity Abdomen: Pain Intensity: 10 Transfer of Care Handoff Completed per policy Notes Mental Status: alert / awake / arousable and participated in evaluation Patient Amnestic to Procedure: Yes Nausea / Vomiting: adequately controlled Pain: adequately controlled Airway Patency, RR, SpO2: stable & adequate BP & HR: stable & adequate Hydration State: stable & adequate Anesthetic Complications: no major complications apparent and Pt Satisfied with anesthetic care
[2024-02-07] MEDS ORDERED: ALBUTEROL HFA 8 GM INHALER INH PRN (16:30)
[2024-02-07] MEDS: HYDROmorphone INJ 1 MG/ML SYRINGE IV PRN (17:07)
[2024-02-07] MEDS: ACETAMINOPHEN 1,000 MG/100 ML VIAL IV SCH (19:11)
[2024-02-07] MEDS: MoRPHine SULFATE 2 MG/ML CARP IV PRN (19:51)
[2024-02-07] MEDS: MoRPHine SULFATE 4 MG/ML 1 ML CARP\\VIAL IV PRN (22:19)
--- NOTE | 2024-02-07 22:36 | Billing Data ---
Date of Service February 07, 2024 Coding Level of Care Code 15803 INT INP/OBS CARE
[2024-02-07] MEDS: LACTATED RINGER'S 1,000 ML IV ONE (23:56)
[2024-02-08] MEDS: FLUTICASONE FUROATE 100MCG 14 PUFFS/INHALER INH SCH (00:02)
[2024-02-08] MEDS: LACTATED RINGER'S 1,000 ML IV SCH (01:03)
[2024-02-08] MEDS: LORazepam 2 MG/1 ML VIAL IV STA (01:32)
[2024-02-08 06:30] LABS: Hematocrit (blood only) 36.3 % (42.0-52.0); Hemoglobin 11.8 g/dl (14.0-18.0); Mean Corpuscular Hemoglobin 28.2 pg (25.0-34.0); Mean Corpuscular Hgb Conc 32.5 g/dL (32.0-36.0); Mean Corpuscular Volume 86.6 fL (80.0-100.0); Mean Platelet Volume 9.6 fL (9.4-12.4); Platelet Count 328 K/uL (130-400); RDW Coefficient of Variation 13.1 % (11.5-14.5); RDW Standard Deviation 41.1 fL (36.4-46.3); Red Blood Count 4.19 M/uL (4.70-6.10); White Blood Count 17.77 K/ul (4.8-10.8)
[2024-02-08 06:41] LABS: BUN Creatinine Ratio 10.7 (10-20); Calcium 9.4 mg/dl (8.6-10.3); Creatinine Clr Calc Pharmacy 138.3 ml/min; Est GFR (African American) 145.7 ml/min; Est GFR (Non-African American) 125.7 ml/min
--- NOTE | 2024-02-08 08:31 | Urology Progress Note ---
Date of Service February 08, 2024 Assessment & Plan (1) Foreign body in penis: Plan - POD #1 s/p Cystoscopy and Removal of Foreign Body. - Ventura draining clear yellow urine. - Plan to maintain Ventura catheter for 5-7 days to allow time for healing. This can be removed at the correction. - Urology will sign-off. Please call with any further questions or concerns. Admission and Anticipated Discharge Date Admission Date: February 07, 2024 Subjective Pt seen at bedside today Awake, sitting up in bed on arrival No acute distress Guards at bedside Ventura draining clear yellow urine Review of Systems Constitutional: as per Subjective / HPI Genitourinary: + as per Subjective / HPI Physical Exam Constitutional: no acute distress Respiratory: no respiratory distress and no labored breathing Neurologic: awake Psychiatric: A+Ox3, euthymic affect Genitourinary: Ventura intact Results & Data Vital Signs (Past 12 Hours) Vital Signs Temp Pulse Resp BP Pulse Ox O2 Del Method 02/08/24 07:16 36.5 C 57 L 15 96/55 L 100 Room Air 02/08/24 05:28 45 L 93/45 L 02/08/24 04:17 36.5 C 42 L 17 89/44 L 100 Room Air 02/07/24 23:59 36.5 C 57 L 16 101/55 L 100 Room Air PG Care Time/CCT Total # of Minutes Spent Total Time Spent with Patient: Total time spent is greater than 50% in coordination of care (as documented) at patient's floor/unit and/or counseling patient: Coding Level of Care Code 45069 SUB INP/OBS CARE 1/25MIN Diagnoses Foreign body in penis T19.4XXA Encounter type: initial encounter (1) Foreign body in penis Encounter type: initial encounter Qualified Code(s): T19.4XXA - Foreign body in penis, initial encounter
--- NOTE | 2024-02-08 11:56 | Discharge Summary ---
Discharge Summary Date of Service February 08, 2024 Principal Dx & Hospital Course #1 = Principal Diagnosis (1) Foreign body ingestion: Patient presented to the ED on 02/06 following ingestion of shards of glass. They underwent an EGD on 02/06 that removed shard of glass and several plastic shards. CT revealed possibility of several pieces of glass within stomach and also throughout the colon. Patient placed on PPI BID and started clear liquid diet. Patient previous on Carafate BID at senior care but recommended to increase that to QID x 4 weeks to help with healing. Patient instructed his stomach will be painful as there is inflammation in there. Patient had not had BM prior to discharge. Hemoglobin stable. (2) Foreign body in penis: Patient inserted 3 pieces of a plastic fork into their urethra. Cystoscopy was performed on 02/06 in which these were removed and a catheter was placed. Spoke w/ urology who recommended patient leave catheter in place for 5-7 days at the senior care and that they did not require antibiotics. Plan Chronic stable diagnoses: Asthma - continue home inhaler Headaches - topiramate currently held, n.p.o. Gender transitioning - estradiol and spironolactone currently held, n.p.o. Depression sertraline, mirtazapine, and perphenazine currently held, n.p.o. Updated provider at [facility] prior to discharge 02/07. Admission HPI Per Admitting Provider Patient is a gender neutral 28-year-old, who would like to be called Delaney at this time. They have a past medical history of asthma, headaches, and depression. Patient was seen today for swallowing glass from their tablet and inserting pieces of a plastic fork in their urethra. They have had a history of inserting pieces of a plastic fork through their urethra multiple over the past few months. Patient stated that since ingesting the glass they have a headache, dizziness, lightheadedness, blurred vision, cough, sore throat, and abdominal pain. They state their pain is sharp and a 10/10 on the pain scale. Patient has not had a bowel movement since ingesting the glass. They deny hemoptysis, nausea, and vomiting. Patient has urinated with pain once this morning since inserting the plastic in their urethra. They stated that 1 piece of plastic came out while urinating, while 2 remain in the urethra. They deny hematuria. Patient has not has anything to eat yet today. Patient denies hematemesis, numbness, tingling. Patient denies tobacco use, alcohol use, and illicit drug use. Patient denies history of COPD, cancer, seizures, arrhythmias, diverticulitis, and bleeding disorders. Patient is a full code at this time. Discharge Plan Discharge Items [facility] Disposition: [facility] Reason For Visit: FOREIGN BODY Discharge Diagnosis: Foreign body in stomach and urethra Activity: Resume your previous activity Non-emergency contact: Primary Care Provider Call non-emergency contact if: you have any medication questions Follow-up/Referrals: Maria Luisa CHAVES [Non-Staff] - Philip CHAVES [Primary Care Provider] - Diet: Clear liquid Addtl Attending Provider Instructions: 1. Maintain Ventura catheter for 5-7 days to allow time for healing. 2. Take omeprazole 40mg BID x 3 months then can decrease to once daily. 3. Can increase Carafate to QID x 1 month then decrease back to twice daily 4. Currently on clear liquid diet, can advance as tolerated. 5. Tylenol for pain. 6. Avoid use of NSAIDs. If patient develops any bright red rectal bleeding, dark tarry stool, fever, chills, or urinary symptoms please report back to the ER for further care. Sincerely, Bere EATON Pending Studies at Discharge: No Skilled Items Patient informed of condition?: Yes DNR: No Discharge Level of Care: Other Communicable Disease: No Discharge Prognosis: Stable Lines: None Urinary Catheter: Yes Medications and DC Order Prescriptions: New omeprazole 40 mg capsule,delayed release(DR/EC) 40 mg PO BID Qty: 60 0RF Continued spironolactone 100 mg Tablet 100 mg PO UD Rx Instructions: Take 100mg by mouth twice daily DOT while in U albuterol sulfate 90 mcg/actuation Hfa Aerosol Inhaler 2 puff INHALATION QID PRN (Reason: Shortness Of Breath Or Wheezing) topiramate 25 mg Tablet 75 mg PO HS Tarsum Professional 2 % Shampoo 1 applic TOPICAL UD Rx Instructions: 1 application once daily 3 times a week while in the U estradiol valerate 20 mg/mL Oil 20 mg IM UD Rx Instructions: Inject 20mg on day 1 and day 15 of every month sertraline 25 mg Tablet 75 mg PO DAILY mirtazapine 15 mg Tablet 22.5 mg PO HS [id number] 250-250-65 mg Tablet 2 tab PO BID PRN (Reason: Pain) Rx Instructions: Dot while in [facility] perphenazine 16 mg Tablet 16 mg PO HS Alvesco 80 mcg/actuation Hfa Aerosol Inhaler 1 puff INHALATION BID Discontinued sucralfate 1 gram Tablet 1 g PO BID omeprazole 40 mg Capsule,Delayed Release(Dr/Ec) 40 mg PO DAILY No Action sucralfate [Carafate] 1 gram tablet 1 g PO QID Admission Data Admit Date/Time: 02/07/24 14:14 Attending Provider: Dave Scott Admit Provider: Bull Cantu Primary Care Provider: Philip CHAVES Other Providers: Aditya Rodriguez; Zaire Helms; Bull Cantu Other Interventions: Discharge Summary Assessment (RN) Last Done: 02/08/24 12:07 Hospital Stay Data Consultations 02/07/24 08:29 Consult Gastroenterology Stat 02/07/24 13:30 Consult Urology Routine 02/07/24 13:46 ED Decision to Admit Stat Procedures Performed Operation Date: 02/07/24 11:10 Actual Procedures p Esophagogastroduodenoscopy, Foreign Body Removal(Not Applicable) - Aditya Rodriguez MD s Cystoscopy, Removal of Foreign Body(Not Applicable) - Zaire Helms MD Diagnostic Imagining Performed 02/07/24 10:07 CT Abd and Pelvis [CT abd pelvis oral and IV con] Routine Pending Results Patient Have Any Pending Studies at Discharge: No Discharge Instructions Given to Patient (Per Discharging Provider) 1. Maintain Ventura catheter for 5-7 days to allow time for healing. 2. Take omeprazole 40mg BID x 3 months then can decrease to once daily. 3. Can increase Carafate to QID x 1 month then decrease back to twice daily 4. Currently on clear liquid diet, can advance as tolerated. 5. Tylenol for pain. 6. Avoid use of NSAIDs. If patient develops any bright red rectal bleeding, dark tarry stool, fever, chills, or urinary symptoms please report back to the ER for further care. Sincerely, Bere EATON Total Time Total Time Spent Total Time Spent (In Minutes): 45 Total Time Includes: Examination of the Patient, Discharge Planning, Medication Reconciliation and Communication With Other Providers Coding Level of Care Code 58665 INP/OBS DISCH >30 MIN Diagnoses Foreign body ingestion T18.9XXA Foreign body in penis T19.4XXA Encounter type: initial encounter
== END 2024-02-08 14:02 ==
LOC: 3E 07:50 → ED 07:50 → SUATTDRO 14:14 → 3E 14:18

== ENCOUNTER 2024-03-12 19:10 | Observation (INO) ==
[2024-03-12 19:42] LABS: Basophils # (auto) 0.03 K/uL (0.00-0.20); Basophils % (auto) 0.2 %; Eosinophils # (auto) 0.04 K/uL (0.00-0.50); Eosinophils % (auto) 0.2 %; Hematocrit (blood only) 33.8 % (42.0-52.0); Hemoglobin 11.4 g/dl (14.0-18.0); Immature Granulocytes # (auto) 0.08 K/uL (0.01-0.20); Immature Granulocytes % (auto) 0.4 %; Lymphocytes # (auto) 3.51 K/uL (1.20-3.40); Mean Corpuscular Hemoglobin 28.3 pg (25.0-34.0); Mean Corpuscular Hgb Conc 33.7 g/dL (32.0-36.0); Mean Corpuscular Volume 83.9 fL (80.0-100.0); Mean Platelet Volume 9.1 fL (9.4-12.4); Monocytes # (auto) 2.08 K/uL (0.11-0.59); Monocytes % (auto) 11.3 %; Neutrophils # (auto) 12.71 K/uL (1.40-6.50); Neutrophils % (auto) 68.9 %; Platelet Count 372 K/uL (130-400); RDW Coefficient of Variation 12.6 % (11.5-14.5); RDW Standard Deviation 38.8 fL (36.4-46.3); Red Blood Count 4.03 M/uL (4.70-6.10); White Blood Count 18.45 K/ul (4.8-10.8)
[2024-03-12 19:45] LABS: iSTAT Creatinine 0.9 mg/dl (0.6-1.3); iSTAT Hemoglobin 12.9 g/dl (14.0-18.0); iSTAT Ionized Calcium 1.3 mmol/l (1.12-1.32); iSTAT Potassium 3.3 mmol/L (3.3-5.0)
[2024-03-12 19:54] LABS: Appearance Urine Clear (Clear); Bilirubin Urine Negative (Negative); Blood Urine Negative (Negative); Color Urine Yellow; Glucose Urine UA Negative (Negative); Ketones Urine Negative (Negative); Leukocyte Esterase Urine Negative (Negative); Nitrite Urine Negative (Negative); Protein Urine Negative (Negative); Specific Gravity Urine 1.023 (1.000-1.030); Urobilinogen Urine Negative (Negative)
[2024-03-12 19:58] LABS: BUN Creatinine Ratio 15.7 (10-20); Calcium 9.2 mg/dl (8.6-10.3); Creatinine Clr Calc Pharmacy 120.6 ml/min; Magnesium 2.1 mg/dl (1.7-2.4); Potassium 3.4 mmol/L (3.5-5.1)
[2024-03-12 20:05] LABS: Troponin I High Sensitivity 5.2 pg/ml (0-20)
[2024-03-12 20:12] LABS: Partial Thromboplastin Ratio 0.8; Partial Thromboplastin Time 22 Seconds (21-31)
[2024-03-12 20:34] LABS: Amphetamines+Metham, Urine Neg (Neg); Barbiturates, Urine Neg (Neg); Benzodiazepine, Urine Neg (Neg); Cocaine, Urine Neg (Neg); Fentanyl, Urine Neg (Neg); MDMA (Ecstacy), Urine Neg (Neg); Marijuana, Urine Neg (Neg); Methadone, Urine Neg (Neg); Opiate, Urine Neg (Neg); Phencyclidine, Urine Neg (Neg)
[2024-03-12] MEDS: ATROPINE SULFATE 0.1 MG/ML 10ML SYR IV ONE (20:37)
--- NOTE | 2024-03-12 20:56 | CT Scan Report ---
Exam(s): CT C SPINE EXAM: CT Cervical Spine Without Intravenous Contrast CLINICAL HISTORY: fall. TECHNIQUE: Axial computed tomography images of the cervical spine without intravenous contrast. CTDI is 25 mGy and DLP is 509.75 mGy-cm. Automated exposure control was utilized for the study. A dose lowering technique was utilized adhering to the principles of ALARA. COMPARISON: No relevant prior studies available. FINDINGS: Vertebrae: The vertebral bodies are intact without acute osseous traumatic injury. No anterolisthesis or retrolisthesis is identified. The facet joints are well aligned without subluxation or dislocation. The pedicles, transverse processes and spinous processes are intact. Discs/spinal canal/neural foramina: No acute findings. No osseous spinal canal stenosis. Soft tissues: Unremarkable. Lung apices: The included lung apices demonstrate no evidence for acute traumatic injury. IMPRESSION: No acute osseous traumatic injury or significant abnormal alignment involving the cervical spine. Electronically signed by: Thomas Vera MD 03/12/24 20:55 PM
--- NOTE | 2024-03-12 20:57 | CT Scan Report ---
Exam(s): CT HEAD Without Contrast EXAM: CT Head Without Intravenous Contrast CLINICAL HISTORY: fall. TECHNIQUE: Axial computed tomography images of the head/brain without intravenous contrast. CTDI is 36.9 mGy and DLP is 546.36 mGy-cm. Automated exposure control was utilized for the study. A dose lowering technique was utilized adhering to the principles of ALARA. COMPARISON: No relevant prior studies available. FINDINGS: Brain: Unremarkable. No hemorrhage. No significant white matter disease. No edema. Ventricles: Unremarkable. No ventriculomegaly. Bones/joints: Unremarkable. No acute fracture. Soft tissues: No significant overlying acute traumatic soft tissue abnormality. No radiopaque foreign body. Sinuses: Unremarkable as visualized. No acute sinusitis. Mastoid air cells: Unremarkable as visualized. No mastoid effusion. IMPRESSION: No acute intracranial process identified. Electronically signed by: Thomas Vera MD 03/12/24 20:55 PM
--- NOTE | 2024-03-12 21:41 | XRay Report ---
SINGLE VIEW CHEST CLINICAL HISTORY: Atypical chest pain. FINDINGS: 2 AP, portable, supine chest radiographs are obtained. No prior studies are available for c omparison at the time of dictation. The examination is degraded by portable technique and patient rot ation. An electronic device projects over the left lower chest. The cardiomediastinal silhouette is u nremarkable. The lungs and pleural spaces are clear. No pneumothorax is seen. The bony thorax is shanthi sly intact. IMPRESSION: No active disease in the chest. ACT 112: Negative or not required by law. Electronically signed by: Matt Delgado M.D. 03/12/2024 9:40 PM
[2024-03-12] MEDS ORDERED: ATROPINE SULFATE 0.1 MG/ML 10ML SYR IV ONE (22:38)
--- NOTE | 2024-03-12 22:52 | History & Physical Report ---
Date of Service March 12, 2024 Assessment & Plan (1) Syncope: (2) Symptomatic bradycardia: (3) Hypokalemia: (4) GERD (gastroesophageal reflux disease): (5) CHI (closed head injury): (6) Borderline personality disorder in adult: (7) Antisocial personality disorder in adult: (8) Asthma: (9) Transsexualism: Plan Syncope/symptomatic bradycardia/presence of internal heart monitor- Patient with witnessed syncopal episode at the [facility] earlier in the day Heart rate decreased to the 20-30 range en route to the hospital, and was given atropine 1 mg IV. In the ED, heart rate remained in the 50-54 range The patient will be admitted to telemetry for serial cardiac enzymes, serial EKG's, cardiac rhythm monitoring and a 2-D echocardiogram with Dopplers. Pacer pads placed Optimize potassium N.p.o. except medications Patient reports that the internal heart monitor was placed a number of years ago, it was supposed to been removed a while ago. Will consult cardiology to assess bradycardia, assess utility of heart monitor Hold perphenazine, with known side effect of bradycardia Borderline and antisocial personality disorder/anxiety/transsexualism- Continue mirtazapine at reduced dose, changed from 22.5 to 15 mg at bedtime Continue hydroxyzine 50 grams twice daily Continue sertraline 75 mg daily Continue topiramate 100 mg at bedtime Holding perphenazine as noted Receives estradiol IM monthly injections Asthma- Continue inhalers GERD/history of foreign body ingestions and removal- Continue sucralfate 1 g p.o. twice daily, omeprazole/pantoprazole 40 mg daily Hypokalemia- Give Klor-Con 40 mEq p.o. NSS + KCl 20 mill equivalents at 60 mL/h x 500 mL History of Present Illness Chief Complaint: The patient presents to the emergency department after a witnessed syncopal episode at the [facility] earlier in the day today. Patient reportedly hit his head, and then was unresponsive. EMS reports that en route to the hospital, the patient became bradycardic, with heart rate into the 20s-30s, and was given atropine 1 mg IV. He was initially unresponsive, and became more responsive after receiving the atropine IV. Primary Care Provider: [facility] The patient is a 28-year-old resident of [facility] with past medical history including foreign body ingestions, and foreign body placement in penis, malingering, migraine, insomnia, history of opioid abuse, history of cannabis abuse, history of cocaine abuse, history of other hallucinogens abuse, borderline personality disorder, antisocial personality disorder, transsexualism, and presence of heart monitor. The patient presents to the emergency department after a syncopal episode as noted, episode of bradycardia responsive to atropine 1 mg IV en route to the hospital. The patient's heart rate remained in the 50-54 range while in the ED. An implanted heart monitor was noted on chest x-ray, which the patient reports was placed sometime before 2019, and when asked about it, he reports that it was supposed to be removed a while ago. He does not have a tube splicer that he is seen for years Allergies Allergy/AdvReac Type Severity Reaction Status Date / Time trazodone Allergy Unknown Swelling Verified 03/12/24 19:41 of Lip/Tongue/Throat Home Medications Medication Instructions Recorded Confirmed Type albuterol sulfate 90 mcg/actuation 2 puff inhalation QID PRN 11/21/23 03/12/24 History aerosol inhaler Shortness Of Breath Or Wheezing spironolactone 100 mg tablet 100 mg PO UD 11/21/23 03/12/24 History [id number] 250 2 tab PO BID PRN Headache 02/07/24 03/12/24 History mg-250 mg-65 mg tablet ciclesonide 80 mcg/actuation 1 puff inhalation BID 02/07/24 03/12/24 History aerosol inhaler (Alvesco) mirtazapine 15 mg tablet 22.5 mg PO HS 02/07/24 03/12/24 History perphenazine 16 mg tablet 16 mg PO HS 02/07/24 03/12/24 History sertraline 25 mg tablet 75 mg PO DAILY 02/07/24 03/12/24 History sucralfate 1 gram tablet (Carafate) 1 g PO BID 02/09/24 03/12/24 History estradiol valerate 20 mg/mL 20 mg IM MONTHLY 03/12/24 03/12/24 History intramuscular syringe estradiol valerate 20 mg/mL 20 mg IM MONTHLY 03/12/24 03/12/24 History intramuscular syringe hydroxyzine pamoate 50 mg capsule 50 mg PO BID 03/12/24 03/12/24 History naproxen 500 mg tablet 500 mg PO BID PRN Pain 03/12/24 03/12/24 History omeprazole 40 mg capsule,delayed 40 mg PO DAILY 03/12/24 03/12/24 History release topiramate 100 mg tablet 100 mg PO HS 03/12/24 03/12/24 History Past Med/Surg History Problem List (Updated 03/13/24 @ 04:30 by Jose Alejandro Clarke MD) Transsexualism GERD (gastroesophageal reflux disease) Hypokalemia Antisocial personality disorder in adult Borderline personality disorder in adult Asthma CHI (closed head injury) (Acute) Syncope (Acute) Symptomatic bradycardia (Acute) Foreign body ingestion (Acute) Foreign body ingestion Foreign body in penis (Acute) Malingering Acute urinary retention Medical History Asthma Foreign body in urethra Social History Smoking Status: Former smoker Tobacco Type: E-cigarettes / Vaping Hx Alcohol Use: No Hx Substance Use: No Preferred Language: Tunisian Communication Ability: Effective Ammonia Worker Required: No Beliefs That Will Affect Care: None Current Living Situation: Other Current Living Situation Comment: [facility] Other Information That Helps Us Care for You: No Feels Safe at Home: Yes Safety Concerns: Feels Safe At This Time Assistive Devices: None Review of Systems Review of Systems: The patient denies chest pain, palpitations, shortness of breath, dyspnea on exertion, cough, lower extremity swelling, sore throat, fevers, chills, sweats, fatigue, nausea, vomiting, diarrhea , constipation, abdominal pain, pelvic pain, blood in urine or stool, dysuria, urinary frequency or urgency, lightheadedness, dizziness, headache, rash, abnormal bruising or bleeding, imbalance, focal or generalized weakness, numbness or tingling in arms or legs, generalized arthralgias or myalgias, back or neck pain, or night sweats. The review of systems is otherwise negative other than for that already noted above, and at least 10 systems have been reviewed. Physical Exam Physical Exam: The patient is awake, alert and oriented 3, well developed and well nourished, normocephalic and atraumatic, lying in bed and in no acute distress. HEENT--PERRL, EOMI, mucous membranes and oropharynx normal Neck--supple. No JVD. No bruits. Thyroid normal, trachea midline, no adenopathy. Heart--bradycardic and regular. No murmurs, rubs or gallops. Lungs--clear bilaterally, no respiratory distress, no accessory muscle use. Abdomen--normal bowel sounds and soft. Nontender. Nondistended, no hernias or masses, no organomegaly. Extremities--no cyanosis or clubbing. No edema. There are good distal pulses b/l. Dermatologic--normal skin turgor, normal color, no abnormal lymph nodes, no rash. Neurologic--cranial nerves II through XII grossly intact. Rheumatologic--normal range of motion. Psychiatric--normal affect. Results & Data Results & Data Vital Signs (Past 12 Hours) Vital Signs Temp Pulse Pulse Resp BP BP Pulse Ox 03/12/24 22:24 60 18 127/67 100 03/12/24 21:30 56 L 20 123/70 100 03/12/24 21:00 74 22 124/71 100 03/12/24 20:00 65 16 133/98 100 03/12/24 19:39 76 16 145/88 H 100 03/12/24 19:38 100 03/12/24 19:18 65 03/12/24 19:14 36.8 C 60 20 135/89 100 O2 Del Method 03/12/24 22:24 03/12/24 21:30 03/12/24 21:00 03/12/24 20:00 03/12/24 19:39 03/12/24 19:38 Room Air 03/12/24 19:18 03/12/24 19:14 Room Air Laboratory Results Laboratory Results WBC 18.45 K/ul (4.8-10.8) H 03/12/24 19:26 RBC 4.03 M/uL (4.70-6.10) L 03/12/24 19:26 Hgb 11.4 g/dl (14.0-18.0) L 03/12/24 19: POC Hgb 12.9 g/dl (14.0-18.0) L 03/12/24 19:33 Hct 33.8 % (42.0-52.0) L 03/12/24 19: POC Hct 38 % (42-52) L 03/12/24 19:33 MCV 83.9 fL (80.0-100.0) 03/12/24 19: MCH 28.3 pg (25.0-34.0) 03/12/24 19: MCHC 33.7 g/dL (32.0-36.0) 03/12/24: RDW Std Deviation 38.8 fL (36.4-46.3) 03/12/24: RDW Coeff of Pankaj 12.6 % (11.5-14.5) 03/12/24 19: Plt Count 372 K/uL (130-400) 03/12/24: MPV 9.1 fL (9.4-12.4) L 03/12/24: Immature Gran % (Auto) 0.4 % 03/12/24: Neut % (Auto) 68.9 % 03/12/24 19: Lymph % (Auto) 19.0 % 03/12/24 19: [place] % (Auto) 11.3 % 03/12/24 19: Eos % (Auto) 0.2 % 03/12/24 19: Baso % (Auto) 0.2 % 03/12/24 19: Neut # (Auto) 12.71 K/uL (1.40-6.50) H 03/12/24: Lymph # (Auto) 3.51 K/uL (1.20-3.40) H 03/12/24 19: [place] # (Auto) 2.08 K/uL (0.11-0.59) H 03/12/24 19: Eos # (Auto) 0.04 K/uL (0.00-0.50) 03/12/24 19: Baso # (Auto) 0.03 K/uL (0.00-0.20) 03/12/24: Immature Gran # (Auto) 0.08 K/uL (0.01-0.20) 03/12/24 19: PT 11.0 Seconds (9.0-12.0) 03/12/24 19: INR 1.0 (0.9-1.1) 03/12/24: APTT 22 Seconds (21-31) 03/12/24 19:26 PTT Ratio 0.8 03/12/24 19:26 POC Sodium 141 mmol/L (135-144) 03/12/24 19:33 Sodium 139 mmol/L (136-145) 03/12/24 19:26 POC Potassium 3.3 mmol/L (3.3-5.0) 03/12/24 19:33 Potassium 3.4 mmol/L (3.5-5.1) L 03/12/24 19:26 POC Chloride 108 mmol/L (101-112) 03/12/24 19:33 Chloride 110 mmol/L (98-107) H 03/12/24 19:26 Carbon Dioxide 24 mmol/L (21-32) 03/12/24: POC Total CO2 20 mmol/L (24-31) L 03/12/24:33 Anion Gap 5 (3-11) 03/12/24 19: POC Anion Gap 17.0 mmol/L (16-25) 03/12/24 19:33 POC BUN 13 mg/dl (7-18) 03/12/24 19:33 BUN 14 mg/dl (6-23) 03/12/24 19: Creatinine 0.89 mg/dl (0.6-1.4) 03/12/24: POC Creatinine 0.9 mg/dl (0.6-1.3) 03/12/24 19:33 Est Cr Clr Drug Dosing 120.6 ml/min 03/12/24 19: eGFR 120.46 03/12/24 19:26 BUN/Creatinine Ratio 15.7 (10-20) 03/12/24 19:26 Glucose 100 mg/dl (70-99(Fasting)) H 03/12/24 19:26 POC Glucose (other) 98 mg/dl (70-99) 03/12/24 19:33 Calcium 9.2 mg/dl (8.6-10.3) 03/12/24: POC Ioniz Calcium Kristina 1.30 mmol/l (1.12-1.32) 03/12/24 19:33 Magnesium 2.1 mg/dl (1.7-2.4) 03/12/24 19:26 Troponin I High Sens 5.2 pg/ml (0-20) 03/12/24 19:26 Urine Color Yellow 03/12/24 19:33 Urine Appearance Clear (Clear) 03/12/24 19:33 Urine pH 7.0 (4.5-7.5) 03/12/24 19:33 Ur Specific [place] 1.023 (1.000-1.030) 03/12/24 19:33 Urine Protein Negative (Negative) 03/12/24 19:33 Urine Glucose (UA) Negative (Negative) 03/12/24 19:33 Urine Ketones Negative (Negative) 03/12/24 19:33 Urine Blood Negative (Negative) 03/12/24 19:33 Urine Nitrite Negative (Negative) 03/12/24 19:33 Urine Bilirubin Negative (Negative) 03/12/24 19:33 Urine Urobilinogen Negative (Negative) 03/12/24 19:33 Ur Leukocyte Esterase Negative (Negative) 03/12/24 19:33 Urine Opiates Screen Neg (Neg) 03/12/24 19:33 Ur Methadone, Qual Neg (Neg) 03/12/24 19:33 Urine Fentanyl Screen Neg (Neg) 03/12/24 19:33 Urine Barbiturates Neg (Neg) 03/12/24 19:33 Ur Phencyclidine (PCP) Neg (Neg) 03/12/24 19:33 U Amphetamin/Meth Scrn Neg (Neg) 03/12/24 19:33 MDMA (Ecstasy) Screen Neg (Neg) 03/12/24 19:33 U Benzodiazepines Scrn Neg (Neg) 03/12/24 19:33 Ur Cocaine Metabolite Neg (Neg) 03/12/24 19:33 U Marijuana (THC) Screen Neg (Neg) 03/12/24 19:[address] 03/12/24 19:17 Exam(s): CT C SPINE EXAM: CT Cervical Spine Without Intravenous Contrast CLINICAL HISTORY: fall. TECHNIQUE: Axial computed tomography images of the cervical spine without intravenous contrast. CTDI is 25 mGy and DLP is 509.75 mGy-cm. Automated exposure control was utilized for the study. A dose lowering technique was utilized adhering to the principles of ALARA. COMPARISON: No relevant prior studies available. FINDINGS: Vertebrae: The vertebral bodies are intact without acute osseous traumatic injury. No anterolisthesis or retrolisthesis is identified. The facet joints are well aligned without subluxation or dislocation. The pedicles, transverse processes and spinous processes are intact. Discs/spinal canal/neural foramina: No acute findings. No osseous spinal canal stenosis. Soft tissues: Unremarkable. Lung apices: The included lung apices demonstrate no evidence for acute traumatic injury. IMPRESSION: No acute osseous traumatic injury or significant abnormal alignment involving the cervical spine. Electronically signed by: Thomas Vera MD 03/12/24 20:55 PM Chest X-Ray 03/12/24 19:17 SINGLE VIEW CHEST CLINICAL HISTORY: Atypical chest pain. FINDINGS: 2 AP, portable, supine chest radiographs are obtained. No prior studies are available for comparison at the time of dictation. The examination is degraded by portable technique and patient rotation. An electronic device projects over the left lower chest. The cardiomediastinal silhouette is unremarkable. The lungs and pleural spaces are clear. No pneumothorax is seen. The bony thorax is grossly intact. IMPRESSION: No active disease in the chest. ACT 112: Negative or not required by law. Electronically signed by: Matt Delgado M.D. 03/12/2024 9:[address] 03/12/24 19:17 Exam(s): CT HEAD Without Contrast EXAM: CT Head Without Intravenous Contrast CLINICAL HISTORY: fall. TECHNIQUE: Axial computed tomography images of the head/brain without intravenous contrast. CTDI is 36.9 mGy and DLP is 546.36 mGy-cm. Automated exposure control was utilized for the study. A dose lowering technique was utilized adhering to the principles of ALARA. COMPARISON: No relevant prior studies available. FINDINGS: Brain: Unremarkable. No hemorrhage. No significant white matter disease. No edema. Ventricles: Unremarkable. No ventriculomegaly. Bones/joints: Unremarkable. No acute fracture. Soft tissues: No significant overlying acute traumatic soft tissue abnormality. No radiopaque foreign body. Sinuses: Unremarkable as visualized. No acute sinusitis. Mastoid air cells: Unremarkable as visualized. No mastoid effusion. IMPRESSION: No acute intracranial process identified. Electronically signed by: Thomas Vera MD 03/12/24 20:55 PM Code Status & VTE Plan Code Status full code VTE Prophylaxis Plan VTE Prophylaxis will be ordered: Yes PG Care Time/CCT Total # of Minutes Spent Total Time Spent with Patient: Total time spent is greater than 50% in coordination of care (as documented) at patient's floor/unit and/or counseling patient: Coding Level of Care Code 24860 INT INP/OBS CARE MIN Diagnoses Syncope R55 Syncope type: unspecified Symptomatic bradycardia R00.1 Hypokalemia E87.6 GERD (gastroesophageal reflux disease) K21.9 CHI (closed head injury) S09.90XA Encounter type: initial encounter Borderline personality disorder in adult F60.3 Antisocial personality disorder in adult F60.2 Asthma J45.909 Transsexualism F64.0 (1) Syncope Syncope type: unspecified Qualified Code(s): R55 - Syncope and collapse (5) CHI (closed head injury) Encounter type: initial encounter Qualified Code(s): S09.90XA - Unspecified injury of head, initial encounter
[2024-03-12] MEDS: hydrOXYzine HCl 25 MG TAB PO STA (23:00)
[2024-03-12] MEDS: POTASSIUM CHLORIDE CRTAB 20 MEQ TABCR PO STA (23:00)
[2024-03-12] MEDS: NSS + 20MEQ KCL 20 MEQ/1,000 ML BAG IV SCH (23:07)
[2024-03-12] MEDS: MIRTAZAPINE TAB 15 MG TAB PO ONE ×2 (23:13→23:18)
[2024-03-12] MEDS: TOPIRAMATE 100 MG TAB PO STA (23:18)
--- NOTE | 2024-03-12 23:54 | Emergency Department Note ---
History of Present Illness General Chief complaint: Cardiac Assessment Stated complaint: SYNCOPE, CHEST PAIN, BRADYCARDIA Time Seen by Provider: 03/12/24 19:14 History of Present Illness Provider complaint: Syncope Maximum Pain Intensity: 8 28-year-old transgender male prisoner presents emergency department for syncope. Per EMS the patient has syncopal episode at the longterm which was witnessed. Patient did hit his head and then was unresponsive. EMS reports that en route the patient was coming bradycardic. EMS reports that the patient bradycardia down into the 20s and 30s and then was unresponsive. They report the gave him a total of atropine 1 mg IV and then the patient became more arousable. Patient currently not reporting chest pain or difficulty breathing. No blood thinners. Home Medications Medication Instructions Recorded Confirmed Type albuterol sulfate 90 mcg/actuation 2 puff inhalation QID PRN 11/21/23 03/12/24 History aerosol inhaler Shortness Of Breath Or Wheezing spironolactone 100 mg tablet 100 mg PO UD 11/21/23 03/12/24 History ytdvbtd-namyoblbjrhmo-[id number] 250 2 tab PO BID PRN Headache 02/07/24 03/12/24 History mg-250 mg-65 mg tablet ciclesonide 80 mcg/actuation 1 puff inhalation BID 02/07/24 03/12/24 History aerosol inhaler (Alvesco) mirtazapine 15 mg tablet 22.5 mg PO HS 02/07/24 03/12/24 History perphenazine 16 mg tablet 16 mg PO HS 02/07/24 03/12/24 History sertraline 25 mg tablet 75 mg PO DAILY 02/07/24 03/12/24 History sucralfate 1 gram tablet (Carafate) 1 g PO BID 02/09/24 03/12/24 History estradiol valerate 20 mg/mL 20 mg IM MONTHLY 03/12/24 03/12/24 History intramuscular syringe estradiol valerate 20 mg/mL 20 mg IM MONTHLY 03/12/24 03/12/24 History intramuscular syringe hydroxyzine pamoate 50 mg capsule 50 mg PO BID 03/12/24 03/12/24 History naproxen 500 mg tablet 500 mg PO BID PRN Pain 03/12/24 03/12/24 History omeprazole 40 mg capsule,delayed 40 mg PO DAILY 03/12/24 03/12/24 History release topiramate 100 mg tablet 100 mg PO HS 03/12/24 03/12/24 History Allergies Allergy/AdvReac Type Severity Reaction Status Date / Time trazodone Allergy Unknown Swelling Verified 03/12/24 19:41 of Lip/Tongue/Throat Past Med/Surg History Problem List (Updated 03/12/24 @ 23:54 by Jose Daniel Hansen MD) CHI (closed head injury) (Acute) Syncope (Acute) Symptomatic bradycardia (Acute) Foreign body ingestion (Acute) Foreign body ingestion Foreign body in penis (Acute) Malingering Acute urinary retention Medical History Asthma Foreign body in urethra Social History Smoking Status: Smoker, status unknown Tobacco Type: E-cigarettes / Vaping Preferred Language: Frisian Communication Ability: Effective Feels Safe at Home: Yes Assistive Devices: None Physical Exam Vital Signs Vital Signs - 24 hr 03/12/24 19:14 03/12/24 19:18 03/12/24 19:38 Temperature 36.8 C Temperature Source Oral Pulse Rate 60 65 Pulse Rate [Right Finger] Respiratory Rate 20 Respiratory Effort / Characteristics Non-Labored Spontaneous Respiratory Depth Normal Blood Pressure 135/89 Blood Pressure [Right Arm] Blood Pressure Mean 104 Blood Pressure Mean [Right Arm] Pulse Oximetry 100 100 Oxygen Delivery Method Room Air Room Air Sepsis Recent Fever Within 48 Hours No Sepsis New/Unexplained Change in Mental Status N/A Sepsis Action Taken by Nursing No Action Required 03/12/24 19:39 03/12/24 20:00 03/12/24 21:00 Temperature Temperature Source Pulse Rate 65 74 Pulse Rate [Right Finger] 76 Respiratory Rate 16 16 22 Respiratory Effort / Characteristics Respiratory Depth Blood Pressure 133/98 124/71 Blood Pressure [Right Arm] 145/88 H Blood Pressure Mean 115 92 Blood Pressure Mean [Right Arm] 107 Pulse Oximetry 100 100 100 Oxygen Delivery Method Sepsis Recent Fever Within 48 Hours Sepsis New/Unexplained Change in Mental Status Sepsis Action Taken by Nursing 03/12/24 21:30 03/12/24 22:24 03/12/24 23:00 Temperature Temperature Source Pulse Rate 56 L 60 62 Pulse Rate [Right Finger] Respiratory Rate 20 18 18 Respiratory Effort / Characteristics Respiratory Depth Blood Pressure 123/70 127/67 117/72 Blood Pressure [Right Arm] Blood Pressure Mean 80 87 82 Blood Pressure Mean [Right Arm] Pulse Oximetry 100 100 Oxygen Delivery Method Sepsis Recent Fever Within 48 Hours Sepsis New/Unexplained Change in Mental Status Sepsis Action Taken by Nursing 03/12/24 23:12 03/12/24 23:17 Temperature Temperature Source Pulse Rate 51 L 50 L Pulse Rate [Right Finger] Respiratory Rate 18 Respiratory Effort / Characteristics Respiratory Depth Blood Pressure 125/68 Blood Pressure [Right Arm] Blood Pressure Mean 87 Blood Pressure Mean [Right Arm] Pulse Oximetry 100 Oxygen Delivery Method Sepsis Recent Fever Within 48 Hours Sepsis New/Unexplained Change in Mental Status Sepsis Action Taken by Nursing Physical Exam GENERAL: Patient in coughs and chains. HENT: Exam performed. - Head: Normocephalic and atraumatic. - Right Ear: External ear normal. No mastoid erythema - Left Ear: External ear normal. No mastoid erythema - Mouth/Throat: The oropharynx is clear and moist. No trismus in the jaw. No dental abscesses or uvula swelling. No oropharyngeal exudate or tonsillar abscesses. EYES: Conjunctivae and EOM are normal. Pupils are equal, round, and reactive to light. Right eye exhibits no discharge. Left eye exhibits no discharge. No scleral icterus. NECK: C-collar in place. CV: Normal rate, regular rhythm, normal heart sounds and intact distal pulses. There is no peripheral edema. Palpable radial pulses bue. PULM/CHEST: Effort normal and breath sounds normal. No respiratory distress. No stridor. He has no wheezes. He has no rales. - Chest Wall: He exhibits no tenderness. No crepitus. ABD: The abdomen is soft. Bowel sounds are normal. He has no distension. No mass is present. There is no tenderness. There is no rebound, no guarding, no Madison's sign and no tenderness at McBurney's point. MUSC/SKEL: Normal range of motion. There is no peripheral edema, tenderness or deformity. LYMPH: No cervical adenopathy. NEURO: He is alert and oriented to person, place, and time. He has normal strength. No cranial nerve deficit or sensory deficit. Coordination normal. GCS eye subscore is 4. GCS verbal subscore is 5. GCS motor subscore is 6. Cerebellar tests wnl. SKIN: Skin is warm and dry. He is not diaphoretic. PSYCH: He has a normal mood and affect. Behavior is normal. Judgment and thought content normal. Course Course 1913: The patient was evaluated in room C7. A complete history and physical exam was performed Cardiac monitoring: An order was placed for continuous cardiac monitoring. The monitor shows a rate of 60 with sinus rhythm interpreted by me 2114: Vital signs stable. Labs show a leukocytosis of 18.45. Patient's white blood cell count was elevated in February 2024 also. Labs are otherwise unremarkable. Imaging unremarkable. Patient will be admitted to the [facility] team giving his symptomatic bradycardia and syncope. Administered Medications Potassium Chloride/Sodium Chloride (Normal Saline W/20 Meq Kcl) 20 meq in 1,000 mls @ 60 mls/hr IV .[id number] AZUL Stop: 03/13/24 07:19 Last Admin: 03/12/24 23:18 Dose: 60 mls/hr Documented By: ALEXIS Discontinued Medications Atropine Sulfate (Atropine Sulfate 0.1 Mg/Ml 10ml Syr) Confirm Administered Dose 1 mg IV .STK-MED ONE Stop: 03/12/24 19:13 Last Admin: 03/12/24 20:37 Dose: Not Given Documented By: MYRA Hydroxyzine HCl (Hydroxyzine Hcl 25 Mg Tab) 50 mg PO NOW STA Stop: 03/12/24 22:26 Last Admin: 03/12/24 23:00 Dose: 50 mg Documented By: ALEXIS Mirtazapine (Mirtazapine Tab 15 Mg Tab) 10 mg PO NOW ONE Stop: 03/12/24 22:26 Last Admin: 03/12/24 23:13 Dose: Not Given Documented By: ALEXIS Mirtazapine (Mirtazapine Tab 15 Mg Tab) 15 mg PO NOW ONE Stop: 03/12/24 22:26 Last Admin: 03/12/24 23:18 Dose: 15 mg Documented By: ALEXIS Potassium Chloride (Potassium Chloride Crtab 20 Meq Tabcr) 40 meq PO NOW STA Stop: 03/12/24 22:34 Last Admin: 03/12/24 23:00 Dose: 40 meq Documented By: ALEXIS Topiramate (Topiramate 100 Mg Tab) 100 mg PO NOW STA Stop: 03/12/24 22:31 Last Admin: 03/12/24 23:18 Dose: 100 mg Documented By: ALEXIS Medical Decision Making Laboratory Data Attestation: I reviewed the patient's lab results. 03/12/24 19:26 03/12/24 19:26 Lab Results 03/12/24 03/12/24 Range/Units 19:26 19:33 WBC 18.45 H (4.8-10.8) K/ul RBC 4.03 L (4.70-6.10) M/uL Hgb 11.4 L (14.0-18.0) g/dl POC Hgb 12.9 L (14.0-18.0) g/dl Hct 33.8 L (42.0-52.0) % POC Hct 38 L (42-52) % MCV 83.9 (80.0-100.0) fL MCH 28.3 (25.0-34.0) pg MCHC 33.7 (32.0-36.0) g/dL RDW Std Deviation 38.8 (36.4-46.3) fL RDW Coeff of Pankaj 12.6 (11.5-14.5) % Plt Count 372 (130-400) K/uL MPV 9.1 L (9.4-12.4) fL Immature Gran % (Auto) 0.4 % Neut % (Auto) 68.9 % Lymph % (Auto) 19.0 % [place] % (Auto) 11.3 % Eos % (Auto) 0.2 % Baso % (Auto) 0.2 % Neut # (Auto) 12.71 H (1.40-6.50) K/uL Lymph # (Auto) 3.51 H (1.20-3.40) K/uL [place] # (Auto) 2.08 H (0.11-0.59) K/uL Eos # (Auto) 0.04 (0.00-0.50) K/uL Baso # (Auto) 0.03 (0.00-0.20) K/uL Immature Gran # (Auto) 0.08 (0.01-0.20) K/uL PT 11.0 (9.0-12.0) Seconds INR 1.0 (0.9-1.1) APTT 22 (21-31) Seconds PTT Ratio 0.8 POC Sodium 141 (135-144) mmol/L Sodium 139 (136-145) mmol/L POC Potassium 3.3 (3.3-5.0) mmol/L Potassium 3.4 L (3.5-5.1) mmol/L POC Chloride 108 (101-112) mmol/L Chloride 110 H (98-107) mmol/L Carbon Dioxide 24 (21-32) mmol/L POC Total CO2 20 L (24-31) mmol/L Anion Gap 5 (3-11) POC Anion Gap 17.0 (16-25) mmol/L POC BUN 13 (7-18) mg/dl BUN 14 (6-23) mg/dl Creatinine 0.89 (0.6-1.4) mg/dl POC Creatinine 0.9 (0.6-1.3) mg/dl Est Cr Clr Drug Dosing 120.6 ml/min eGFR 120.46 BUN/Creatinine Ratio 15.7 (10-20) Glucose 100 H (70-99(Fasting)) mg/dl POC Glucose (other) 98 (70-99) mg/dl Calcium 9.2 (8.6-10.3) mg/dl POC Ioniz Calcium Kristina 1.30 (1.12-1.32) mmol/l Magnesium 2.1 (1.7-2.4) mg/dl Troponin I High Sens 5.2 (0-20) pg/ml Urine Color Yellow Urine Appearance Clear (Clear) Urine pH 7.0 (4.5-7.5) Ur Specific [place] 1.023 (1.000-1.030) Urine Protein Negative (Negative) Urine Glucose (UA) Negative (Negative) Urine Ketones Negative (Negative) Urine Blood Negative (Negative) Urine Nitrite Negative (Negative) Urine Bilirubin Negative (Negative) Urine Urobilinogen Negative (Negative) Ur Leukocyte Esterase Negative (Negative) Urine Opiates Screen Neg (Neg) Ur Methadone, Qual Neg (Neg) Urine Fentanyl Screen Neg (Neg) Urine Barbiturates Neg (Neg) Ur Phencyclidine (PCP) Neg (Neg) U Amphetamin/Meth Scrn Neg (Neg) MDMA (Ecstasy) Screen Neg (Neg) U Benzodiazepines Scrn Neg (Neg) Ur Cocaine Metabolite Neg (Neg) U Marijuana (THC) Screen Neg (Neg) Imaging Data Attestation: I personally reviewed and interpreted this imaging study as follows: My Impression: Chest x-ray negative. Airway clear. No pneumothorax. No consolidation. No cardiomegaly or cephalization.. No free air under the diaphragm. No fractures of the skeletal structures. Radiologist's Impression: Cervical Spine CT 03/12/24 19:17 Exam(s): CT C SPINE EXAM: CT Cervical Spine Without Intravenous Contrast CLINICAL HISTORY: fall. TECHNIQUE: Axial computed tomography images of the cervical spine without intravenous contrast. CTDI is 25 mGy and DLP is 509.75 mGy-cm. Automated exposure control was utilized for the study. A dose lowering technique was utilized adhering to the principles of ALARA. COMPARISON: No relevant prior studies available. FINDINGS: Vertebrae: The vertebral bodies are intact without acute osseous traumatic injury. No anterolisthesis or retrolisthesis is identified. The facet joints are well aligned without subluxation or dislocation. The pedicles, transverse processes and spinous processes are intact. Discs/spinal canal/neural foramina: No acute findings. No osseous spinal canal stenosis. Soft tissues: Unremarkable. Lung apices: The included lung apices demonstrate no evidence for acute traumatic injury. IMPRESSION: No acute osseous traumatic injury or significant abnormal alignment involving the cervical spine. Electronically signed by: Thomas Vera MD 03/12/24 20:55 PM Chest X-Ray 03/12/24 19:17 SINGLE VIEW CHEST CLINICAL HISTORY: Atypical chest pain. FINDINGS: 2 AP, portable, supine chest radiographs are obtained. No prior studies are available for comparison at the time of dictation. The examination is degraded by portable technique and patient rotation. An electronic device projects over the left lower chest. The cardiomediastinal silhouette is unremarkable. The lungs and pleural spaces are clear. No pneumothorax is seen. The bony thorax is grossly intact. IMPRESSION: No active disease in the chest. ACT 112: Negative or not required by law. Electronically signed by: Matt Delgado M.D. 03/12/2024 9:[address] 03/12/24 19:17 Exam(s): CT HEAD Without Contrast EXAM: CT Head Without Intravenous Contrast CLINICAL HISTORY: fall. TECHNIQUE: Axial computed tomography images of the head/brain without intravenous contrast. CTDI is 36.9 mGy and DLP is 546.36 mGy-cm. Automated exposure control was utilized for the study. A dose lowering technique was utilized adhering to the principles of ALARA. COMPARISON: No relevant prior studies available. FINDINGS: Brain: Unremarkable. No hemorrhage. No significant white matter disease. No edema. Ventricles: Unremarkable. No ventriculomegaly. Bones/joints: Unremarkable. No acute fracture. Soft tissues: No significant overlying acute traumatic soft tissue abnormality. No radiopaque foreign body. Sinuses: Unremarkable as visualized. No acute sinusitis. Mastoid air cells: Unremarkable as visualized. No mastoid effusion. IMPRESSION: No acute intracranial process identified. Electronically signed by: Thomas Vera MD 03/12/24 20:55 PM ECG Data Attestation: I personally reviewed and interpreted this ECG as follows: Rate (beats per minute): 59 Rhythm: + normal sinus ECG Intervals/blocks: + Normal QRS, + Normal ND and + Normal QT-c ECG ST segments: + Normal ST segments [facility] Narrative 1913: The patient was evaluated in room C7. A complete history and physical exam was performed Cardiac monitoring: An order was placed for continuous cardiac monitoring. The monitor shows a rate of 60 with sinus rhythm interpreted by me 2114: Vital signs stable. Labs show a leukocytosis of 18.45. Patient's white blood cell count was elevated in February 2024 also. Labs are otherwise unremarkable. Imaging unremarkable. Patient will be admitted to the [facility] hospitalist team giving his symptomatic bradycardia and syncope. Impression & Plan Symptomatic bradycardia, Syncope, CHI (closed head injury) Discharge Plan Visit Data Chief Complaint: Cardiac Assessment Stated Complaint: SYNCOPE, CHEST PAIN, BRADYCARDIA ED Provider: Jose Daniel Hansen Discharge Problem: Symptomatic bradycardia, Syncope, CHI (closed head injury) Patient Disposition: Being Evaluated by Hospitalist Forms Stand Alone Forms: My [facility] Prescriptions Prescriptions: No Action spironolactone 100 mg Tablet 100 mg PO UD Rx Instructions: Take 100mg by mouth twice daily DOT while in RHU albuterol sulfate 90 mcg/actuation Hfa Aerosol Inhaler 2 puff INHALATION QID PRN (Reason: Shortness Of Breath Or Wheezing) sertraline 25 mg Tablet 75 mg PO DAILY mirtazapine 15 mg Tablet 22.5 mg PO HS Rx Instructions: 1 & 1/2 TABLET DOSE uhgywht-pkxtutxenjryi-ktaulkea 250-250-65 mg Tablet 2 tab PO BID PRN (Reason: Headache) Rx Instructions: Dot while in RHU perphenazine 16 mg Tablet 16 mg PO HS Alvesco 80 mcg/actuation Hfa Aerosol Inhaler 1 puff INHALATION BID sucralfate [Carafate] 1 gram tablet 1 g PO BID topiramate 100 mg Tablet 100 mg PO HS omeprazole 40 mg capsule,delayed release(DR/EC) 40 mg PO DAILY hydroxyzine pamoate 50 mg Capsule 50 mg PO BID naproxen 500 mg Tablet 500 mg PO BID PRN (Reason: Pain) estradiol valerate 20 mg/mL Syringe 20 mg IM MONTHLY Rx Instructions: THINJECT DAILY ON THE 1ST DAY OF EVERY MONTH estradiol valerate 20 mg/mL Syringe 20 mg IM MONTHLY Rx Instructions: INJECT DAILY ON THE 15TH DAY OF EVERY MONTH Referrals Referrals: [facility] [Primary Care Provider] - Discharge Problem: Syncope Qualifiers: Syncope type: unspecified Qualified Code(s): R55 - Syncope and collapse CHI (closed head injury) Qualifiers: Encounter type: initial encounter Qualified Code(s): S09.90XA - Unspecified injury of head, initial encounter
[2024-03-13] MEDS ORDERED: ALBUTEROL HFA 8 GM INHALER INH PRN (00:22)
--- NOTE | 2024-03-13 07:59 | Hospitalist Progress Note ---
Date of Service March 13, 2024 Assessment & Plan (1) Syncope: (2) Symptomatic bradycardia: (3) Asthma: (4) GERD (gastroesophageal reflux disease): (5) Antisocial personality disorder in adult: (6) Borderline personality disorder in adult: Admission and Anticipated Discharge Date Admission Date: March 12, 2024 Results & Data Results & Data Vital Signs (Past 12 Hours) Vital Signs Temp Pulse Pulse Resp BP BP BP 03/13/24 07:28 36.4 C L 49 L 18 112/71 03/13/24 02:25 36.6 C 54 L 14 102/62 03/13/24 00:22 36.5 C 52 L 16 104/63 03/12/24 23:55 52 L 18 115/67 03/12/24 23:17 50 L 03/12/24 23:12 51 L 18 125/68 03/12/24 23:00 62 18 117/72 03/12/24 22:24 60 18 127/67 03/12/24 21:30 56 L 20 123/70 03/12/24 21:00 74 22 124/71 03/12/24 20:00 65 16 133/98 Pulse Ox O2 Del Method 03/13/24 07:28 100 Room Air 03/13/24 02:25 100 Room Air 03/13/24 00:22 100 Room Air 03/12/24 23:55 100 03/12/24 23:17 03/12/24 23:12 100 03/12/24 23:00 03/12/24 22:24 100 03/12/24 21:30 100 03/12/24 21:00 100 03/12/24 20:00 100 Laboratory Results 03/13/24 07:11 03/13/24 07:11 (1) Syncope Syncope type: unspecified Qualified Code(s): R55 - Syncope and collapse
[2024-03-13 08:20] LABS: Albumin Level 3.4 gm/dl (3.4-5.0); BUN Creatinine Ratio 14.5 (10-20); Basophils # (auto) 0.02 K/uL (0.00-0.20); Basophils % (auto) 0.2 %; Calcium 8.6 mg/dl (8.6-10.3); Creatinine Clr Calc Pharmacy 136.5 ml/min; Eosinophils # (auto) 0.07 K/uL (0.00-0.50); Eosinophils % (auto) 0.7 %; Hematocrit (blood only) 34.5 % (42.0-52.0); Hemoglobin 10.9 g/dl (14.0-18.0); Immature Granulocytes # (auto) 0.03 K/uL (0.01-0.20); Immature Granulocytes % (auto) 0.3 %; Lymphocytes # (auto) 3.79 K/uL (1.20-3.40); Lymphocytes % (auto) 37.1 %; Magnesium 2.1 mg/dl (1.7-2.4); Mean Corpuscular Hemoglobin 27.6 pg (25.0-34.0); Mean Corpuscular Hgb Conc 31.6 g/dL (32.0-36.0); Mean Corpuscular Volume 87.3 fL (80.0-100.0); Mean Platelet Volume 9.8 fL (9.4-12.4); Monocytes # (auto) 0.97 K/uL (0.11-0.59); Monocytes % (auto) 9.5 %; Neutrophils # (auto) 5.34 K/uL (1.40-6.50); Neutrophils % (auto) 52.2 %; Phosphorus 3.5 mg/dl (2.5-4.9); Platelet Count 302 K/uL (130-400); Platelet Estimate Normal (Normal); Potassium 3.7 mmol/L (3.5-5.1); RDW Coefficient of Variation 13.2 % (11.5-14.5); Red Blood Count 3.95 M/uL (4.70-6.10); White Blood Count 10.22 K/ul (4.8-10.8)
--- NOTE | 2024-03-13 09:52 | Cardiology Consultation ---
Date of Consultation March 13, 2024 Assessment & Plan (1) Micturition syncope: (2) Syncope, vasovagal: (3) Sinus bradycardia: Plan Mr. Tomas is a 28-year-old male inmate at [facility] with a history of Asthma, GERD, Antisocial Personality Disorder, Borderline Personality Disorder, Transsexualism, Malingering, and Loop Recorder Implantation at age 17 who was admitted to [facility] on 03/12/24 following an episode of Micturition Syncope followed by a Vagal Episode (HR deceleration en route). Patient was in one of the intermediate units and attempting to urinate when he suddenly collapsed onto the floor. He denies having any prodromal warning symptoms -- he specifically denies any antecedent palpitations, lightheadedness, nausea, cold sweats, or chest discomfort -- but following this event he was nauseated and vomited a couple of times. En route to the hospital -- EMS documented that his heart rate dropped down into the 20s and 30s. He was given a dose of IV atropine and his heart rate rebounded. Patient denies having any for an objects inside any of his body cavities when this syncopal event occurred. Patient has had 1 other syncopal episode in his lifetime, when he was a teenager and that was attributed to low blood pressure. Nonetheless, he ended up having a loop recorder implanted. As mentioned, I attempted to interrogate his loop recorder, however the loop recorder battery is . We discussed micturition and vasovagal syncope -- vagus nerve stimulation can cause her heart rate to slow down and blood pressure to drop resulting in lightheadedness and/or passing out. Recommend the followin. Stay well hydrated. 2. Compression stockings may be helpful. 3. Increase dietary sodium intake. 4. Avoid negative chronotropic medications. 5. Consider lowering the dose or stopping Spironolactone. 6. Patient is stable from a cardiac standpoint for discharge. Thank you for asking us to see this patient in consultation. History of Present Illness Reason for Consultation: -- Syncope. -- Symptomatic bradycardia. Requesting Physician: Sergey Modi DO Attending Physician: Dilip Clark MD History of Present Illness Mr. Tomas is a 28-year-old male inmate at [facility] with a history of Asthma, GERD, Antisocial Personality Disorder, Borderline Personality Disorder, Transsexualism, Malingering, and Loop Recorder Implantation at age 17 who was admitted to [facility] on 03/12/24 following a Syncopal Episode. Patient was in one of the intermediate unit and attempting to urinate when he suddenly collapsed onto the floor. He denies having any prodromal warning symptoms -- he specifically denies any antecedent palpitations, lightheadedness, nausea, cold sweats, or chest discomfort -- but following this event he was nauseated and vomited a couple of times. En route to the hospital -- EMS documented that his heart rate dropped down into the 20s and 30s. He was given a dose of IV atropine and his heart rate rebounded. Patient denies having any for an objects inside any of his body cavities when this syncopal event occurred. Patient has had 1 other syncopal episode in his lifetime, when he was a teenager and that was attributed to low blood pressure. Nonetheless, he ended up having a loop recorder implanted. Patient denies any cardiac history or events otherwise, he denies any congenital heart disease, history of heart murmurs, or any family history of premature CAD or sudden cardiac arrest. Family History: -- 1 of his grandparents had to have a pacemaker placed at the age of 16, ? congenital heart block. Allergies Allergy/AdvReac Type Severity Reaction Status Date / Time trazodone Allergy Unknown Swelling Verified 03/12/24 19:41 of Lip/Tongue/Throat Home Medications Medication Instructions Recorded Confirmed Type albuterol sulfate 90 mcg/actuation 2 puff inhalation QID PRN 11/21/23 03/12/24 History aerosol inhaler Shortness Of Breath Or Wheezing spironolactone 100 mg tablet 100 mg PO UD 11/21/23 03/12/24 History bzvtafw-[id number]-nhjrqffd 250 2 tab PO BID PRN Headache 02/07/24 03/12/24 History mg-250 mg-65 mg tablet ciclesonide 80 mcg/actuation 1 puff inhalation BID 02/07/24 03/12/24 History aerosol inhaler (Alvesco) mirtazapine 15 mg tablet 22.5 mg PO HS 02/07/24 03/12/24 History perphenazine 16 mg tablet 16 mg PO HS 02/07/24 03/12/24 History sertraline 25 mg tablet 75 mg PO DAILY 02/07/24 03/12/24 History sucralfate 1 gram tablet (Carafate) 1 g PO BID 02/09/24 03/12/24 History estradiol valerate 20 mg/mL 20 mg IM MONTHLY 03/12/24 03/12/24 History intramuscular syringe estradiol valerate 20 mg/mL 20 mg IM MONTHLY 03/12/24 03/12/24 History intramuscular syringe hydroxyzine pamoate 50 mg capsule 50 mg PO BID 03/12/24 03/12/24 History naproxen 500 mg tablet 500 mg PO BID PRN Pain 03/12/24 03/12/24 History omeprazole 40 mg capsule,delayed 40 mg PO DAILY 03/12/24 03/12/24 History release topiramate 100 mg tablet 100 mg PO HS 03/12/24 03/12/24 History Patient History Medical History Foreign body in urethra Social History Smoking Status: Former smoker Tobacco Type: E-cigarettes / Vaping Hx Alcohol Use: No Hx Substance Use: No Preferred Language: Mozambican Communication Ability: Effective Soa Engineer Required: No Beliefs That Will Affect Care: None Current Living Situation: Other Current Living Situation Comment: intermediate Other Information That Helps Us Care for You: No Feels Safe at Home: Yes Safety Concerns: Feels Safe At This Time Assistive Devices: None Review of Systems Review of Systems: -- As per HPI. Physical Exam Physical Exam: Blood pressure is 112/71. Pulse 50 and regular. GENERAL: Patient in no acute distress. HEENT: Head is atraumatic, normocephalic. EOM's intact. Facies symmetric. No perioral cyanosis. NECK: No JVD. JVP is not elevated. Carotid upstrokes are + 2 bilaterally. CHEST/LUNGS: Clear to auscultation throughout all lung ford. No wheezes, rales, or crackles. CVS: S1 and S2 are regular, bradycardiac without murmurs, gallops, or rubs. PMI is nondisplaced. No lifts, heaves, or thrills. No abdominal aortic or renal bruits. Palpable loop recorder is present at the left sternal border. ABDOMINAL EXAM: Bowel sounds are present. EXTREMITIES: No clubbing or cyanosis. No edema. NEUROLOGIC EXAM: Patient is awake, alert, and oriented. Pleasant and cooperative. Answers questions appropriately. Speech is clear. Back Hoe Machine Operator: -- Sinus bradycardia with resting HR in the 50's. -- No cardiac pauses. I attempted to interrogate his loop recorder, unfortunately the battery of the loop recorder is . EKG 03/13/24: -- Sinus bradycardia with a first-degree AV block at 48 bpm. -- No acute changes. Results & Data Vital Signs (Past 12 Hours) Vital Signs Temp Pulse Pulse Resp BP BP BP 03/13/24 07:28 36.4 C L 49 L 18 112/71 03/13/24 02:25 36.6 C 54 L 14 102/62 03/13/24 00:22 36.5 C 52 L 16 104/63 03/12/24 23:55 52 L 18 115/67 03/12/24 23:17 50 L 03/12/24 23:12 51 L 18 125/68 03/12/24 23:00 62 18 117/72 03/12/24 22:24 60 18 127/67 Pulse Ox O2 Del Method 03/13/24 07:28 100 Room Air 03/13/24 02:25 100 Room Air 03/13/24 00:22 100 Room Air 03/12/24 23:55 100 03/12/24 23:17 03/12/24 23:12 100 03/12/24 23:00 03/12/24 22:24 100 Laboratory Results Laboratory Results - last 24 hr 03/12/24 03/12/24 03/13/24 19:26 19:33 07:11 WBC 18.45 H 10.22 RBC 4.03 L 3.95 L Hgb 11.4 L 10.9 L POC Hgb 12.9 L Hct 33.8 L 34.5 L POC Hct 38 L MCV 83.9 87.3 MCH 28.3 27.6 MCHC 33.7 31.6 L RDW Std Deviation 38.8 42.0 RDW Coeff of Pankaj 12.6 13.2 Plt Count 372 302 MPV 9.1 L 9.8 Immature Gran % (Auto) 0.4 0.3 Neut % (Auto) 68.9 52.2 Lymph % (Auto) 19.0 37.1 [place] % (Auto) 11.3 9.5 Eos % (Auto) 0.2 0.7 Baso % (Auto) 0.2 0.2 Neut # (Auto) 12.71 H 5.34 Lymph # (Auto) 3.51 H 3.79 H [place] # (Auto) 2.08 H 0.97 H Eos # (Auto) 0.04 0.07 Baso # (Auto) 0.03 0.02 Immature Gran # (Auto) 0.08 0.03 Platelet Estimate Normal PT 11.0 INR 1.0 APTT 22 PTT Ratio 0.8 POC Sodium 141 Sodium 139 141 POC Potassium 3.3 Potassium 3.4 L 3.7 POC Chloride 108 Chloride 110 H 115 H Carbon Dioxide 24 23 POC Total CO2 20 L Anion Gap 5 3 POC Anion Gap 17.0 POC BUN 13 BUN 14 11 Creatinine 0.89 0.76 POC Creatinine 0.9 Est Cr Clr Drug Dosing 120.6 136.5 eGFR 120.46 126.34 BUN/Creatinine Ratio 15.7 14.5 Glucose 100 H 80 POC Glucose (other) 98 Calcium 9.2 8.6 POC Ioniz Calcium Kristina 1.30 Phosphorus 3.5 Magnesium 2.1 2.1 Troponin I High Sens 5.2 Albumin 3.4 Urine Color Yellow Urine Appearance Clear Urine pH 7.0 Ur Specific Fluker 1.023 Urine Protein Negative Urine Glucose (UA) Negative Urine Ketones Negative Urine Blood Negative Urine Nitrite Negative Urine Bilirubin Negative Urine Urobilinogen Negative Ur Leukocyte Esterase Negative Nasal Screen MRSA (PCR) Urine Opiates Screen Neg Ur Methadone, Qual Neg Urine Fentanyl Screen Neg Urine Barbiturates Neg Ur Phencyclidine (PCP) Neg U Amphetamin/Meth Scrn Neg MDMA (Ecstasy) Screen Neg U Benzodiazepines Scrn Neg Ur Cocaine Metabolite Neg U Marijuana (THC) Screen Neg 03/13/24 Unknown WBC RBC Hgb POC Hgb Hct POC Hct MCV MCH MCHC RDW Std Deviation RDW Coeff of Pankaj Plt Count MPV Immature Gran % (Auto) Neut % (Auto) Lymph % (Auto) [place] % (Auto) Eos % (Auto) Baso % (Auto) Neut # (Auto) Lymph # (Auto) [place] # (Auto) Eos # (Auto) Baso # (Auto) Immature Gran # (Auto) Platelet Estimate PT INR APTT PTT Ratio POC Sodium Sodium POC Potassium Potassium POC Chloride Chloride Carbon Dioxide POC Total CO2 Anion Gap POC Anion Gap POC BUN BUN Creatinine POC Creatinine Est Cr Clr Drug Dosing eGFR BUN/Creatinine Ratio Glucose POC Glucose (other) Calcium POC Ioniz Calcium Kristina Phosphorus Magnesium Troponin I High Sens Albumin Urine Color Urine Appearance Urine pH Ur Specific Fluker Urine Protein Urine Glucose (UA) Urine Ketones Urine Blood Urine Nitrite Urine Bilirubin Urine Urobilinogen Ur Leukocyte Esterase Nasal Screen MRSA (PCR) Negative Urine Opiates Screen Ur Methadone, Qual Urine Fentanyl Screen Urine Barbiturates Ur Phencyclidine (PCP) U Amphetamin/Meth Scrn MDMA (Ecstasy) Screen U Benzodiazepines Scrn Ur Cocaine Metabolite U Marijuana (THC) Screen Diagnostic Findings CXR 03/12/24: FINDINGS: 2 AP, portable, supine chest radiographs are obtained. No prior studies are available for comparison at the time of dictation. The examination is degraded by portable technique and patient rotation. An electronic device projects over the left lower chest. The cardiomediastinal silhouette is unremarkable. The lungs and pleural spaces are clear. No pneumothorax is seen. The bony thorax is grossly intact. IMPRESSION: No active disease in the chest. Medications Administered Medication List Acetaminophen (Acetaminophen 325 Mg Tab) 650 mg PO Q4H PRN PRN Reason: Pain or Fever Stop: 04/12/24 00:21 Last Admin: 03/13/24 09:59 Dose: 650 mg Documented By: AM Fluticasone Furoate (Fluticasone Furoate 100mcg 14 Puffs/Inhaler) 1 puffs INH DAILY AZUL Stop: 04/12/24 08:59 Last Admin: 03/13/24 09:57 Dose: 1 puffs Documented By: AM Hydroxyzine HCl (Hydroxyzine Hcl 25 Mg Tab) 50 mg PO BID AZUL Stop: 04/12/24 08:59 Last Admin: 03/13/24 09:56 Dose: 50 mg Documented By: AM Pantoprazole Sodium (Pantoprazole 40 Mg Tab) 40 mg PO DAILY AZUL Stop: 04/12/24 08:59 Last Admin: 03/13/24 09:56 Dose: 40 mg Documented By: AM Sertraline HCl (Sertraline Hcl 50 Mg Tablet) 75 mg PO DAILY AZUL Stop: 04/12/24 08:59 Last Admin: 03/13/24 09:56 Dose: 75 mg Documented By: AM Spironolactone (Spironolactone 100 Mg Tab) 100 mg PO BID AZUL Stop: 04/12/24 08:59 Last Admin: 03/13/24 09:57 Dose: 100 mg Documented By: DEANNE Sucralfate (Sucralfate 1 Gm Tab) 1 gm PO BID AZUL Stop: 04/12/24 08:59 Last Admin: 03/13/24 09:57 Dose: 1 gm Documented By: AM Discontinued Medications Atropine Sulfate (Atropine Sulfate 0.1 Mg/Ml 10ml Syr) Confirm Administered Dose 1 mg IV .STK-MED ONE Stop: 03/12/24 19:13 Last Admin: 03/12/24 20:37 Dose: Not Given Documented By: MYRA Hydroxyzine HCl (Hydroxyzine Hcl 25 Mg Tab) 50 mg PO NOW STA Stop: 03/12/24 22:26 Last Admin: 03/12/24 23:00 Dose: 50 mg Documented By: ALEXIS Potassium Chloride/Sodium Chloride (Normal Saline W/20 Meq Kcl) 20 meq in 1,000 mls @ 60 mls/hr IV .[id number] AZUL Stop: 03/13/24 07:19 Last Infusion: 03/13/24 10:01 Dose: Infused Documented By: Admin: 03/12/24 23:18 Dose: 60 mls/hr Documented By: ALEXIS Mirtazapine (Mirtazapine Tab 15 Mg Tab) 10 mg PO NOW ONE Stop: 03/12/24 22:26 Last Admin: 03/12/24 23:13 Dose: Not Given Documented By: ALEXIS Mirtazapine (Mirtazapine Tab 15 Mg Tab) 15 mg PO NOW ONE Stop: 03/12/24 22:26 Last Admin: 03/12/24 23:18 Dose: 15 mg Documented By: ALEXIS Potassium Chloride (Potassium Chloride Crtab 20 Meq Tabcr) 40 meq PO NOW STA Stop: 03/12/24 22:34 Last Admin: 03/12/24 23:00 Dose: 40 meq Documented By: ALEXIS Topiramate (Topiramate 100 Mg Tab) 100 mg PO NOW STA Stop: 03/12/24 22:31 Last Admin: 03/12/24 23:18 Dose: 100 mg Documented By: ALEXIS PG Care Time/CCT Total # of Minutes Spent Total Time Spent with Patient: Total time spent is greater than 50% in coordination of care (as documented) at patient's floor/unit and/or counseling patient:34 [place] [address] IN/OBS CONSULT LVL 3,45M Patient Type New History Detailed Exam Detailed Medical Decision Making Moderate Complexity Diagnoses Micturition syncope R55 Syncope, vasovagal R55 Sinus bradycardia R00.1 Time Spent (min) 47
[2024-03-13] MEDS: PANTOprazole 40 MG TAB PO SCH (09:56)
[2024-03-13] MEDS: hydrOXYzine HCl 25 MG TAB PO SCH (09:56)
[2024-03-13] MEDS: SERTRALINE HCL 50 MG TABLET PO SCH (09:56)
[2024-03-13] MEDS: SPIRONOLACTONE 100 MG TAB PO SCH (09:57)
[2024-03-13] MEDS: SUCRALFATE 1 GM TAB PO SCH (09:57)
[2024-03-13] MEDS: FLUTICASONE FUROATE 100MCG 14 PUFFS/INHALER INH SCH (09:57)
[2024-03-13] MEDS: ACETAMINOPHEN 325 MG TAB PO PRN (09:59)
[2024-03-13 11:28] VITALS: RESP 16
--- NOTE | 2024-03-13 15:09 | Electrocardiogram Report ---
Test Reason : Blood Pressure : */* mmHG Vent. Rate : 59 BPM Atrial Rate : 59 BPM P-R Int : 128 ms QRS Dur : 94 ms QT Int : 420 ms P-R-T Axes : 19 -18 28 degrees QTcB Int : 415 ms Sinus bradycardia Normal ECG No previous ECGs available Confirmed by Dilip Clark ([id number]) on 03/13/2024 3:09:02 PM Referred By: [facility] Confirmed By: Dilip Clark
--- NOTE | 2024-03-13 15:18 | Electrocardiogram Report ---
Test Reason : Blood Pressure : */* mmHG Vent. Rate : 48 BPM Atrial Rate : 48 BPM P-R Int : * ms QRS Dur : 80 ms QT Int : 436 ms P-R-T Axes : * -26 -20 degrees QTcB Int : 389 ms Sinus bradycardia with 1st degree A-V block Abnormal ECG When compared with ECG of 12-Mar-2024 19:15, (unconfirmed) Criteria for Septal infarct are no longer Present Confirmed by Dilip Clark ([id number]) on 03/13/2024 3:18:36 PM Referred By: [facility] Confirmed By: Dilip Clark
--- NOTE | 2024-03-13 15:39 | Electrocardiogram Report ---
Test Reason : Blood Pressure : */* mmHG Vent. Rate : 77 BPM Atrial Rate : 77 BPM P-R Int : 142 ms QRS Dur : 96 ms QT Int : 416 ms P-R-T Axes : 19 -16 46 degrees QTcB Int : 470 ms Normal sinus rhythm Normal ECG When compared with ECG of 13-Mar-2024 06:46, (unconfirmed) Vent. rate has increased by 29 bpm Non-specific change in ST segment in Inferior leads QT has lengthened Confirmed by Dilip Clark ([id number]) on 03/13/2024 3:39:19 PM Referred By: [facility] Confirmed By: Dilip Clark
[2024-03-13 15:50] VITALS: PULSE 68; TEMP 98.6; O2SAT 99
--- NOTE | 2024-03-13 16:10 | Discharge Summary ---
Date of Service March 13, 2024 Admission HPI Per Admitting Provider The patient is a 28-year-old resident of [facility] with past medical history including foreign body ingestions, and foreign body placement in penis, malingering, migraine, insomnia, history of opioid abuse, history of cannabis abuse, history of cocaine abuse, history of other hallucinogens abuse, borderline personality disorder, antisocial personality disorder, transsexualism, and presence of heart monitor. The patient presents to the emergency department after a syncopal episode as noted, episode of bradycardia responsive to atropine 1 mg IV en route to the hospital. The patient's heart rate remained in the 50-54 range while in the ED. An implanted heart monitor was noted on chest x-ray, which the patient reports was placed sometime before 2019, and when asked about it, he reports that it was supposed to be removed a while ago. He does not have a launderette attendant that he is seen for years Admission Exam Per Admitting Provider The patient is awake, alert and oriented 3, well developed and well nourished, normocephalic and atraumatic, lying in bed and in no acute distress. HEENT--PERRL, EOMI, mucous membranes and oropharynx normal Neck--supple. No JVD. No bruits. Thyroid normal, trachea midline, no adenopathy. Heart--bradycardic and regular. No murmurs, rubs or gallops. Lungs--clear bilaterally, no respiratory distress, no accessory muscle use. Abdomen--normal bowel sounds and soft. Nontender. Nondistended, no hernias or masses, no organomegaly. Extremities--no cyanosis or clubbing. No edema. There are good distal pulses b/l. Dermatologic--normal skin turgor, normal color, no abnormal lymph nodes, no rash. Neurologic--cranial nerves II through XII grossly intact. Rheumatologic--normal range of motion. Psychiatric--normal affect. Principal Diagnosis Syncopal episode Discharge Exam Gen: WD/WN, NAD HEENT: NCAT, PERRL CV: slow rate, normal rhythm, no m/r/g, S1/S2 present Resp: CTAB, symmetrical chest rise, breathing non-labored Abd: Soft, NT/ND, +BS, no HSM Ext: Normal str, no gross deformities, L hand somewhat cold, no cyanosis or clubbing Skin: Warm, dry, pink, no rashes or lesions Neuro: AOx3, CN II-XII grossly intact Psych: Full affect. Speech pace normal, content somewhat tangential Discharge Data Allergies Allergy/AdvReac Type Severity Reaction Status Date / Time trazodone Allergy Unknown Swelling Verified 03/12/24 19:41 of Lip/Tongue/Throat Consultations 03/12/24 21:17 ED Decision to Admit Stat 03/13/24 00:22 Consult Cardiology Routine Ordered Studies 03/13/24 07:11 03/13/24 07:[address] 03/12/24 19:17 EXAM: CT Cervical Spine Without Intravenous Contrast FINDINGS: Vertebrae: The vertebral bodies are intact without acute osseous traumatic injury. No anterolisthesis or retrolisthesis is identified. The facet joints are well aligned without subluxation or dislocation. The pedicles, transverse processes and spinous processes are intact. Discs/spinal canal/neural foramina: No acute findings. No osseous spinal canal stenosis. Soft tissues: Unremarkable. Lung apices: The included lung apices demonstrate no evidence for acute traumatic injury. IMPRESSION: No acute osseous traumatic injury or significant abnormal alignment involving the cervical spine. Electronically signed by: Thomas Vera MD 03/12/24 20:55 PM Chest X-Ray 03/12/24 19:17 SINGLE VIEW CHEST CLINICAL HISTORY: Atypical chest pain. FINDINGS: 2 AP, portable, supine chest radiographs are obtained. No prior studies are available for comparison at the time of dictation. The examination is degraded by portable technique and patient rotation. An electronic device projects over the left lower chest. The cardiomediastinal silhouette is unremarkable. The lungs and pleural spaces are clear. No pneumothorax is seen. The bony thorax is grossly intact. IMPRESSION: No active disease in the chest. Electronically signed by: Matt Delgado M.D. 03/12/2024 9:[address] 03/12/24 19:17 EXAM: CT Head Without Intravenous Contrast FINDINGS: Brain: Unremarkable. No hemorrhage. No significant white matter disease. No edema. Ventricles: Unremarkable. No ventriculomegaly. Bones/joints: Unremarkable. No acute fracture. Soft tissues: No significant overlying acute traumatic soft tissue abnormality. No radiopaque foreign body. Sinuses: Unremarkable as visualized. No acute sinusitis. Mastoid air cells: Unremarkable as visualized. No mastoid effusion. IMPRESSION: No acute intracranial process identified. Electronically signed by: Thomas Vera MD 03/12/24 20:55 PM Hospital Course (1) Syncope: (2) Symptomatic bradycardia: (3) Asthma: (4) GERD (gastroesophageal reflux disease): (5) Antisocial personality disorder in adult: (6) Borderline personality disorder in adult: Plan Mrs. Tomas is a 28yo trans woman w PMH asthma, GERD, antisocial personality disorder, borderline personality disorder, and foreign body ingestion who presents from [facility] due to symptomatic bradycardia and a witnessed syncopal episode. #Syncope #Symptomatic bradycardia - Had witnessed syncopal episode at the halfway on 03/12; HR reportedly down to 20s en route to the hospital - Given atropine 1 mg IV; HR remained in the 50-54 range in the ED Per [facility] staff, pt's lowest recorded HR at the facility was 67 Pt's lowest HR after admission = 48; considered acceptable physiologic level given age and overall health Pt still reports chest pain inconsistent w vitals and exam findings; suspect element of malingering - Trop 5.2; WBC 18.45 --> 10.22; K+ 3.4 --> 3.7 - EKG showing first-degree heart block - CXR and other labs unremarkable - Pacer pads placed; perphenazine held d/t known side effect of bradycardia - Cardiology consulted; determined pt is stable from cardiac standpoint Pt reports internal heart monitor was placed years ago during previous syncopal episode Cardiology attempted to interrogate loop recorder but found it was no longer functional Recommend replacing current loop recorder and regularly monitoring for further bradycardia #ASPD #BPD - Continue mirtazapine at reduced dose (changed from 22.5 to 15 mg) at bedtime - Continue hydroxyzine 50 grams twice daily - Continue sertraline 75 mg daily - Continue topiramate 100 mg at bedtime - Holding perphenazine as noted above Chronic conditions - GERD - continue sucralfate 1 g po bid, PPI 40 mg daily - Asthma - continue inhalers as needed * Receives estradiol IM monthly injections Total Time Total Time Spent Total Time Spent (In Minutes): <30 Discharge Plan Discharge Items [facility]position[facility] Reason For Visit: SYMPTOMATIC BRADYCARDIA, SYNCOPE Discharge Diagnosis: Syncopal episode Activity: Per Instructions section Non-emergency contact: Primary Care Provider and [employer] Call non-emergency contact if: your symptoms worsen Follow-up/Referrals: Philip CHAVES [Primary Care Provider] - Diet: Regular Addtl Attending Provider Instructions: You were admitted to the hospital for symptomatic bradycardia (low heart rate) after a syncopal episode (passing out). You were treated with IV atropine and kept on continuous heart monitoring. You were seen by our cardiology specialists, who determined that you were stable from a cardiac standpoint. You told us about the loop recorder (heart monitor) you had implanted many years ago. Our cardiologists found that it is no longer functioning, but we feel it would be beneficial for you to have one. Therefore, we recommend that you find someone, perhaps at [facility], to implant a new loop recorder. Seeing a launderette attendant at regular intervals may also be beneficial, to keep an eye on your symptoms and check on the loop recorder. Call 911 or go to the ER if you feel: weak, dizzy, or like you may have another fall; sudden, severe abdominal pain or nausea/vomiting; sudden, severe chest pain or shortness of breath. Thank you for allowing us to participate in your care. Pending Studies at Discharge: No Stand-Alone Forms: My [facility] Skilled Items Patient informed of condition?: Yes Discharge Level of Care: Other Communicable Disease: No Discharge Prognosis: Stable Lines: None Urinary Catheter: No Medications and DC Order Prescriptions: Continued spironolactone 100 mg Tablet 100 mg PO UD Rx Instructions: Take 100mg by mouth twice daily DOT while in RHU albuterol sulfate 90 mcg/actuation Hfa Aerosol Inhaler 2 puff INHALATION QID PRN (Reason: Shortness Of Breath Or Wheezing) sertraline 25 mg Tablet 75 mg PO DAILY mirtazapine 15 mg Tablet 22.5 mg PO HS Rx Instructions: 1 & 1/2 TABLET DOSE [id number] 250-250-65 mg Tablet 2 tab PO BID PRN (Reason: Headache) Rx Instructions: Dot while in RHU perphenazine 16 mg Tablet 16 mg PO HS Alvesco 80 mcg/actuation Hfa Aerosol Inhaler 1 puff INHALATION BID sucralfate [Carafate] 1 gram tablet 1 g PO BID topiramate 100 mg Tablet 100 mg PO HS omeprazole 40 mg capsule,delayed release(DR/EC) 40 mg PO DAILY hydroxyzine pamoate 50 mg Capsule 50 mg PO BID naproxen 500 mg Tablet 500 mg PO BID PRN (Reason: Pain) estradiol valerate 20 mg/mL Syringe 20 mg IM MONTHLY Rx Instructions: THINJECT DAILY ON THE 1ST DAY OF EVERY MONTH estradiol valerate 20 mg/mL Syringe 20 mg IM MONTHLY Rx Instructions: INJECT DAILY ON THE 15TH DAY OF EVERY MONTH Discharge Orders: Discharge Order (Routine); Ordered 03/13/24 Ordered By: Navin Dexter Admission Data Admit Date/Time: 03/12/24 22:51 Attending Provider: Sergey Modi Admit Provider: Jose Alejandro Clarke Primary Care Provider: Philip CHAVES Other Providers: Jose Alejandro Clarke; Emeka Salgado Other Interventions: Discharge Summary Assessment (RN) Last Done: 03/13/24 16:43 Supervising Physician Co-Signing Physician Notes I personally examined the patient and verified all medina points of history and exam, discussed case, and agree with decision making with Dr Dexter feeling better. Would like loop recorder implanteddiscussed this is reasonable, also discussed that current cardiology team does not feel it is necessary. Continue present follow-through radiology outpatient. Patient is aware of this. Vitals noted, in general awake and alert pleasant stress. HEENT normocephalic atraumatic moist. Breathing suturectomy. Skin without rashes pallor. Or syncope/bradycardiavasovagal event most likely. at the same time I do harbor some degree of concern over significant amplificationobviously need to follow everything objectivelyambulatory cardiac monitoring certainly appears reasonablepresenting with stable symptoms. Resident Activity Tracking Resident Involvement: Resident Care Provided Care Provided: Adult Hospital Medicine
[2024-03-13 16:45] VITALS: BP 102/62
--- NOTE | 2024-03-13 18:44 | Billing Data ---
Date of Service March 13, 2024 Coding Level of Care Code 47398 IN/OBS DISCH 30 MIN/LESS
[2024-03-13] MEDS ORDERED: MIRTAZAPINE TAB 15 MG TAB PO SCH (21:00)
[2024-03-13] MEDS ORDERED: TOPIRAMATE 100 MG TAB PO SCH (21:00)
== END 2024-03-13 19:16 | DRG 312 ==
LOC: ED 19:10 → INTOOBSV 22:51 → 2S 22:51 → SUATTDRO 22:51 → 2S 23:55